=== PATIENT | female | born 1940 | race African-American/Black ===

== ENCOUNTER 2017-07-22 16:14 | Inpatient (IN) | payer MEDICARE, MEDICAID ==
[2017-07-22 17:25] LABS: #Eosinphils 0.4 thou/uL (0.0-0.7); #Lymphocytes 1.3 thou/uL (1.20-3.40); #Monocytes 1.2 thou/uL (0.11-0.59); %Basophils 0.3 % (0.0-1.0); %Eosinophils 3.4 % (0.0-10.0); %Monocytes 10.7 % (0.0-10.0); Hematocrit 33.4 % (36.0-47.0); Mean Platelet Volume 6.1 fL (7.4-10.4); Red Blood Cell (RBC) Count 3.47 mill/uL (4.20-5.40); White Blood Cell (WBC) Count 10.9 thou/uL (4.8-10.8)
[2017-07-22 17:32] LABS: Lactic Acid - Sepsis 2.2 mmol/L (0.5-2.2)
[2017-07-22 17:43] LABS: Troponin I 0.019 ng/mL (< 0.028)
--- NOTE | 2017-07-22 17:57 | RAD ---
LEFT FOOT 3 VIEWS: Date: 07/22/17 HISTORY: Wound on left foot. COMPARISON: None. FINDINGS: There is abnormal erosion of the proximal phalanx head and distal phalanx base of small toe with soft tissue edema. The Lisfranc interval is maintained. Moderate degenerative disease of the midfoot. There is osteopenia of the anterior process of the calcaneus. Enthesopathic changes of the calcaneus are present. Small phlebolith in anterior soft tissues present. IMPRESSION: 1. Findings concerning for osteomyelitis of the great toe proximal phalanx head and distal phalanx b ase. Clinical correlation advised. MRI may be beneficial if clinically indicated. 2. Erosion on medial margin of the proximal phalanx of the great toe can be seen with gout arthritis . POS: [facility]
[2017-07-22 18:43] LABS: Chloride 101 mmol/L (98-107)
[2017-07-22 18:45] LABS: Globulin 5.2 g/dL (2.4-3.5); Protein, Total 8.5 g/dL (6.0-8.3)
[2017-07-22 18:46] LABS: Anion Gap 16 mmol/L (10-20); Carbon Dioxide 15 mmol/L (23-31)
[2017-07-22 18:47] LABS: Bilirubin, Total 0.4 mg/dL (0.2-1.2)
[2017-07-22 18:48] LABS: Alkaline Phosphatase 96 U/L (40-150); Calc. Creatinine Clearance 0 mL/min (70-130); Estimated GFR-MDRD 13
[2017-07-22 18:49] LABS: BUN (Urea Nitrogen) 67 mg/dL (9.8-20.1)
[2017-07-22 18:50] LABS: AST (SGOT) 22 U/L (5-34)
[2017-07-22 18:51] LABS: ALT (SGPT) 17 U/L (8-55); CK (CPK) 44 U/L (29-168)
[2017-07-22] MEDS ORDERED: Piperacillin/Tazobactam 3.375 GM in Sodium Chloride 0.9% 100 ML IVPB SCH (19:15)
[2017-07-22] MEDS ORDERED: Calcium Chloride 1 GM/10 ML Abboject SYRINGE IVP SCH (19:15)
[2017-07-22] MEDS ORDERED: Dextrose 50% Abboject 50 ML SYRINGE ONE (19:21)
[2017-07-22] MEDS ORDERED: Insulin Regular 300 UNITS/3 ML VIAL ONE (19:21)
--- NOTE | 2017-07-22 19:39 | HP ---
HISTORY OF PRESENT ILLNESS: Mrs. Vincent is a 76-year-old black woman. She came into this facility earlier today because of the nonhealing wound in her left toes and it started by an ulceration of the left toe about more than 1 month ago. She has been seeing a mechanic marine engine as an outpatient. She was t reated with antibiotics to which she has not responded. She came to this facility for management. She denies any history of trauma. She denies any history of fever. PAST MEDICAL HISTORY: Remarkable for hypertension. She denies diabetes, heart disease, lung disease , liver disease. PAST SURGICAL HISTORY: Remarkable for hernia repair. ALLERGIES: She does not have any known allergies. SOCIAL HISTORY: She is an active smoker, however, could not quantify her smoking habit. She drinks socially. FAMILY HISTORY: Reviewed and is noncontributory. HOME MEDICATIONS: Not available at this time for identification. REVIEW OF SYSTEMS: Constitutional: She denies any fever, admits to weakness. HEENT: No headache, no ocular pain, no sore throat, no rhinorrhea, no earache, no epistaxis. Neck: No neck pain, no nec k stiffness. Cardiovascular: No shortness of breath. No chest pain. Pulmonary: No coughing. Gas trointestinal: No nausea, no vomiting, no diarrhea, no abdominal pain. Genitourinary: No dysuria, no hematuria. Endocrinology: No heat or cold intolerance. No polyuria, polydipsia, polyphagia. Sk in: She has this ulcer in the left big toe and also gangrenous wet gangrene of the second and third toe. There is no rash. No itching. Hematology: No abnormal bleeding, no ecchymosis. Lymphatic: No palpable lymphadenopathy, no painfu l lymphadenopathy. Allergy: No hay fever. Musculoskeletal: No arthritis. Psychiatric: No anxie ty, no depression. Neurologic: No seizure. PHYSICAL EXAMINATION: GENERAL: At the current time, she is alert, responsive, cooperative, in no acute distress, sick look ing. VITAL SIGNS: Temperature of 97.6, pulse rate 53, respiratory rate 18, blood pressure 103/46. HEENT: Her head is normocephalic and atraumatic. Both her pupils are equally reactive. Ears and no se are normal. Oral mucosa is moist. She has a very poor denture. NECK: Supple. There is no distention of the jugular vein. No lymphadenopathy felt. Thyroid gland is not palpable. There is no carotid bruit. CHEST: Symmetrical with regular S1, S2. LUNGS: Clear. ABDOMEN: Soft. Bowel sound heard. We could not appreciate any organomegaly. EXTREMITIES: Limbs showed no edema. She has an ulcer in the left big toe. In the second and third toes, she has some wet gangrene. Distal pulses are not felt bilaterally. NEUROLOGICAL: She moves all extremities. LABORATORY DATA: CBC showed WBCs of 10.9, hemoglobin of 11.2, hematocrit of 32.4, MCV of 96.2, plate let 236. Lactic acid was noticed to be 2.2. Troponin 0.019. Chemistry and electrolytes are not yet available. CT angiogram of the abdomen and lower extremities is in progress. ASSESSMENT AND PLAN: This is a 76-year-old black woman with history of hypertension, heavy smoker, w ho came in with gangrenous left toes, failed outpatient antibiotics therapy. The patient's vascular surgeon, Dr. Cobian, was consulted. CT angiogram is in progress. The patient is started on antibioti cs. She will be admitted to the surgical floor. Further evaluation and management will depend on th e course of the hospitalization and her response to therapy.
[2017-07-22] MEDS ORDERED: Sodium Chloride 0.9% 1,000 ML IV SCH (20:17)
[2017-07-22] MEDS ORDERED: Morphine 4 MG/ML VIAL SLOW IVP PRN (20:17)
[2017-07-22] MEDS ORDERED: Ondansetron HCl/PF 4 MG/2 ML Vial IVP PRN (20:17)
[2017-07-22] MEDS ORDERED: Milk Of Magnesia 30 ML UDCUP PO PRN (20:17)
[2017-07-22] MEDS ORDERED: Vancomycin HCl 1 GM in Premix Bag 1 BAG IVPB SCH (21:00)
[2017-07-22] MEDS ORDERED: Nicotine 21 MG PATCH TD SCH (21:00)
[2017-07-22] MEDS ORDERED: Piperacillin/Tazobactam 2.25 GM in Sodium Chloride 0.9% 100 ML IVPB SCH (23:59)
[2017-07-23 00:23] LABS: Anion Gap 14 mmol/L (10-20); BUN (Urea Nitrogen) 68 mg/dL (9.8-20.1); Calc. Creatinine Clearance 13 mL/min (70-130); Calcium 9.3 mg/dL (7.8-10.44); Carbon Dioxide 15 mmol/L (23-31); Chloride 104 mmol/L (98-107); Estimated GFR-MDRD 13
[2017-07-23] MEDS: Sodium Bicarbonate 150 MEQ in Dextrose 5% in Water 850 ML IV SCH ×6 (01:39→16:01)
[2017-07-23] MEDS: Acetaminophen 325 MG TAB PO PRN ×2 (01:43→20:52)
[2017-07-23] MEDS ORDERED: Piperacillin/Tazobactam 2.25 GM in Sodium Chloride 0.9% 100 ML IVPB SCH (03:00)
[2017-07-23 05:50] LABS: Anion Gap 12 mmol/L (10-20); BUN (Urea Nitrogen) 66 mg/dL (9.8-20.1); Calc. Creatinine Clearance 14 mL/min (70-130); Calcium 8.7 mg/dL (7.8-10.44); Carbon Dioxide 18 mmol/L (23-31); Chloride 103 mmol/L (98-107); Estimated GFR-MDRD 14
[2017-07-23 06:39] LABS: Bilirubin Large (Negative); Blood, Urine Negative (Negative); Glucose, Urine (Dipstick) Negative (Negative); Ketone, Urine Negative (Negative); Nitrite Negative (Negative); Protein, Urine (Dipstick) Negative (Neg-Trace)
[2017-07-23 06:42] LABS: Bacteria/HPF Rare-Few HPF (None Seen); WBC/HPF 21-50 HPF (0-3)
--- NOTE | 2017-07-23 06:51 | CON ---
DATE OF CONSULTATION: 07/23/2017 HISTORY OF PRESENT ILLNESS: Ms. Yasmin Vincent is a 76-year-old female who presented to the ER yesterd ay evening with foot wound for the past month. She had been treated with antibiotics, but perhaps po diatrist and perhaps her local physician, although she is not sure of the names. She is a rather poo r historian and much of this information was gleaned from medical records as the daughter is not curr ently available. She denies any pain in the foot to me this morning. She has had no apparent fever. PAST MEDICAL HISTORY: Includes hypertension. The patient denies any other medical problems. PAST SURGICAL HISTORY: Perhaps a hernia repair and perhaps an abscess drainage. The patient has cat aracts, but evidently is not sure if she has had this repaired. SOCIAL HISTORY: The patient say she puffs on cigarettes, but does not smoke regularly. REVIEW OF SYSTEMS: Unable to do a review of systems, patient is asking when she can go home. PHYSICAL EXAMINATION: GENERAL: Elderly lady who is afebrile. VITAL SIGNS: Blood pressure recorded is 130/60, heart rate is about 60. NECK: Radiated bruits. CARDIAC: Regular rhythm, harsh systolic murmur, both at the right upper and left lower sternal borde rs. LUNGS: Clear to auscultation anteriorly. ABDOMEN: Soft, nontender, no masses. EXTREMITIES: She has palpable femoral pulses bilaterally with no bruits. I did not detect any other distal pulses except perhaps a right popliteal, but if it is present, it is weak. She has no palpab le pedal pulses. She has a monophasic Doppler signal in the right posterior tibial and no Doppler si gnals in the left PT, DP or perineal. SKIN: Shiny on both feet with gangrenous odor. There is a dry gangrene over the plantar aspect of t he first metatarsal head and a dressing on the left great toe that is dry. ASSESSMENT: Severe peripheral arterial disease. Unfortunately, her creatinine is 4 with a previous creatinine of about 1.1 in November of this year. At this present level of creatinine, any angiographi c evaluation or intervention is not possible. Likewise wound healing will not be possible with this degree of circulatory impairment and a leg amputation may be needed. 2. Renal failure, acute on chronic. Dr. Villa involved. 3. Hypertension, unknown medicines, although documented on amiloride, amlodipine, Cozaar, HCTZ, meto prolol. She was also on Bactrim and Lodine. 4. Harsh systolic murmur, check echo. Presently, the patient is being evaluated from a renal standp oint and it is possible that stopping her home medications, which could be detriment to her renal fun ction may allow for some improvement to allow contrast studies. Based on physical exam, expect that the patient still may have nonreconstructable peripheral vascular disease.
[2017-07-23 07:19] LABS: RBC/HPF 0-3 HPF (0-3)
[2017-07-23 07:21] LABS: Trichomonas/HPF 1+ HPF (None Seen); Yeast-All Forms None Seen HPF (None Seen)
[2017-07-23 07:22] LABS: Hyaline Casts/LPF NONE SEEN LPF (0-3 Hyaline)
[2017-07-23] MEDS ORDERED: Famotidine/PF 20 mg/2ml Vial SLOW IVP SCH (09:00)
[2017-07-23] MEDS ORDERED: Enoxaparin Sodium 30 MG/0.3 ML SYRINGE SC SCH (09:00)
[2017-07-23] MEDS ORDERED: Senokot S 8.6-50 MG TAB PO SCH (09:30)
[2017-07-23] MEDS ORDERED: Amlodipine 10 MG TAB PO SCH (09:30)
--- NOTE | 2017-07-23 09:31 | PDOC.PN ---
- Subjective Encounter Start Date: 07/23/17 Encounter Start Time: 09:29 Patient seen and examined. No new complaints. No overnight events. Undergoing Echo. No CP. - Objective Resuscitation Status: Resuscitation Status FULL:Full Resuscitation MAR Reviewed: Yes Vital Signs & Weight: Vital Signs (12 hours) Temp Pulse Resp BP Pulse Ox 07/23/17 07:00 98.0 F 60 18 170/88 H 100 07/23/17 04:00 97.2 F L 56 L 18 131/62 100 07/23/17 03:51 100 07/23/17 00:00 98.5 F 55 L 20 139/60 100 Weight Weight 149 lb 4.8 oz I&O: 07/22/17 07/23/17 07/24/17 06:59 06:59 06:59 Intake Total 1503 Output Total 200 Balance 1303 Result Diagrams: 07/22/17 17:09 07/23/17 04:24 EKG Reviewed by me: Yes (Tele SR) Phys Exam - Physical Examination Constitutional: NAD Respiratory: no wheezing, no rales, no rhonchi Symmetrical Cardiovascular: RRR, no rub no heaves/pulsation Gastrointestinal: soft, non-tender, no distention, positive bowel sounds Musculoskeletal: no edema LLE gangrene Neurological: non-focal, normal sensation, moves all 4 limbs Psychiatric: normal affect, A&O x 3 Dx/Plan - Plan cont current plan of care, continue antibiotics, PT/OT, oncology social work, DVT proph w/heparin IMPRESSION: 1. Gangrene of toes of left foot with ?Osteomyelitis 2. Severe PVD 3. Severe Hyperkalemia - drug induced 4. CELESTINA with Metabolic acidosis 5. CKD 2 PLAN: * Started on bicarb drip * BMP Q6h x 2 * AM labs * Nephro/CV following * Resume Toprol and Amlodipine * Cont to monitor Review of Systems - Review of Systems Respiratory: negative: Cough, Dry, Shortness of Breath, Hemoptysis, SOB with Excertion, Pleuritic Pain, Sputum, Wheezing Cardiovascular: negative: Chest Pain, Palpitations, Orthopnea, Paroxysmal Noc. Dyspnea, Edema, Light Headedness, Other Gastrointestinal: negative: Nausea, Vomiting, Abdominal Pain, Diarrhea, Constipation, Melena, Hematochezia, Other - Medications/Allergies Allergies/Adverse Reactions: Allergies Allergy/AdvReac Type Severity Reaction Status Date / Time No Known Allergies Allergy Verified 07/22/17 23:44 Medications: Current Medications Acetaminophen (Tylenol) 650 mg PO Q4H PRN PRN Reason: Headache/Fever or Pain Last Admin: 07/23/17 01:43 Dose: 650 mg Amlodipine Besylate (Norvasc) 10 mg PO DAILY [facility] Amlodipine Besylate (Norvasc) 10 mg PO [facility] Bisacodyl (Dulcolax) 10 mg PO DAILYPRN PRN PRN Reason: Constipation Famotidine (Pepcid) 20 mg PO BID [facility] Heparin Sodium (Porcine) (Heparin) 5,000 units SC BID [facility] Vancomycin HCl 750 mg/ Sodium (Chloride) 250 mls @ 250 mls/hr IVPB Q2D@1800 [facility] Sodium Bicarbonate 150 meq/ (Dextrose/Water) 1,000 mls @ 100 mls/hr IV .Q10H [facility] Last Admin: 07/23/17 01:39 Dose: 1,000 mls Piperacillin Sod/Tazobactam (Sod 2.25 gm/ Sodium Chloride) 100 mls @ 200 mls/ hr IVPB Q12HR [facility] Metoprolol Succinate (Toprol Xl) 50 mg PO DAILY [facility] Metoprolol Succinate (Toprol Xl) 50 mg PO [facility] Miscellaneous Medication (Pharmacy To Dose) 1 each IVPB ASDIR [facility] Ondansetron HCl (Zofran) 4 mg IVP Q6H PRN PRN Reason: Nausea/Vomiting Senna/Docusate Sodium (Senokot S) 1 tab PO BID [facility] Senna/Docusate Sodium (Senokot S) 1 tab PO [facility] Sodium Chloride (Flush - Normal Saline) 10 ml IVF Q12HR [facility] Sodium Chloride (Flush - Normal Saline) 10 ml IVF PRN PRN PRN Reason: Saline Flush
[2017-07-23] MEDS: Heparin 5,000 UNITS/ML VIAL SC SCH ×2 (09:34→20:13)
[2017-07-23] MEDS: Piperacillin/Tazobactam 2.25 GM in Sodium Chloride 0.9% 100 ML IVPB SCH ×2 (09:42→20:13)
--- NOTE | 2017-07-23 10:00 | CON ---
DATE OF CONSULTATION: 07/23/2017 Ms. Vincent is a 76-year-old black female who came in with left toe infection - nonhealing wound. Du ring the initial evaluation, she was found to be in acute kidney injury and hyperkalemic. She was st arted on volume repletion and was given calcium gluconate, D50 plus insulin as well as Kayexalate. P otassium has been improving in the last 12 hours. We are consulted for further management of this ac saxman kidney injury and hyperkalemia. REVIEW OF SYSTEMS: No chest pain, no shortness of breath. Positive for left toe wound. No diarrhea , constipation, no gross hematuria. No dysuria, no urinary frequency. No headache, no diplopia, no sore throat, no hematochezia, no diarrhea, no fever or chills, no headache, no sore throat, no abdomi nal pain, occasional joint pains, no new skin rashes. HOME MEDICATIONS: Bactrim-DS 2 tablets p.o. b.i.d., etodolac 100 and p.o. t.i.d. p.r.n., metoprolol succinate 50 mg daily, hydrochlorothiazide 25 mg daily, losartan 100 mg daily, amlodipine 10 mg tab d aily, Amiloride 5 mg daily. Currently, the patient is on Zosyn 2.25 grams IV q.12h, famotidine 20 mg IV daily, vancomycin 750 mg IV q.2 days, morphine sulfate 2 mg IV q.4h., heparin 5000 units subcutaneous b.i.d. PAST MEDICAL HISTORY: 1. Chronic left toe infection. 2. Hypertension. PAST SURGICAL HISTORY: Status post hernia repair. ALLERGIES: None. TRAUMA: None. IMMUNIZATIONS: Not up to date. HOSPITALIZATIONS: Please see past medical history. FAMILY HISTORY: No family history of ESRD. SOCIAL HISTORY: The patient still smokes and has been smoking for the last several years. No alcoho l intake. She has a live-in boyfriend. Lives in [place]. Four children with one . No alcoho l intake, no blood transfusion. Retired caregiver. Education 5th grade. PHYSICAL EXAMINATION: VITAL SIGNS: Blood pressure is 170/88, heart rate 60, respiratory rate 18, temperature 98, pulse ox 100%. GENERAL: Noted to be awake, alert, comfortable, not in distress. SKIN: Adequate turgor. HEENT: Pinkish conjunctivae, anicteric sclerae. NECK: No neck mass or carotid bruits, no JVD. CHEST: No deformities. LUNGS: Clear breath sounds. No wheezing, no crackles. HEART: Normal sinus rhythm. No murmur, no gallops or rubs. ABDOMEN: Globular, soft, nontender, no masses. EXTREMITIES: No edema, no deformities. Please note she has a left toe ulceration. NEUROLOGIC: Moving all extremities. No tremors or asterixis, no ataxia. LABORATORY X-RAY FINDINGS: 07/23/2017 - Sodium 127, potassium 5.9, chloride 103, carbon dioxide 18, BUN 66, creatinine 3.86, glucose 111, calcium 8.7. 07/22/2017 - Sodium 125, potassium 7, chloride 101, carbon dioxide 15, BUN 67, creatinine 3.96. Albu min 3.3. Urinalysis; no protein, WBC 21-50, RBCs 0-3. Urine sodium 48, urine creatinine 108. ASSESSMENT AND PLAN: 1. Acute kidney injury - most likely hemodynamically mediated renal dysfunction secondary to the use of nonsteroidal anti-inflammatory drugs, diuretics and ARB. We will hold off these medications. I a gree with volume repletion. Due to the metabolic acidosis, I changed the IV fluid to isotonic bicarb marla. There is no indication for any dialytic intervention with this patient. I anticipate improve ment in the renal function with this conservative management. 2. Hyperkalemia, much improved. Continue current management on isotonic bicarbonate. Continue to h old off losartan and etodolac. 3. Left nonhealing toe wound. Surgery has been consulted. Dr. Cobian has evaluated this patient. T he patient most likely has severe peripheral vascular disease. Holding off any angiographic procedur e until we can improve the renal function. Overall, I agree with current management.
[2017-07-23 12:33] LABS: Anion Gap 11 mmol/L (10-20); BUN (Urea Nitrogen) 54 mg/dL (9.8-20.1); Calc. Creatinine Clearance 18 mL/min (70-130); Calcium 8.5 mg/dL (7.8-10.44); Carbon Dioxide 23 mmol/L (23-31); Chloride 103 mmol/L (98-107); Estimated GFR-MDRD 19
--- NOTE | 2017-07-23 14:33 | RAD ---
ABDOMEN ONE VIEW: History: 76-year-old female with nausea and vomiting. FINDINGS: Scattered gas and fecal material throughout the colon. There is some gas in nondilated small bowel bu t no evidence to suggest significant bowel obstruction or free intraperitoneal air or overt calculus. IMPRESSION: Considerable gas and fecal material throughout the colon without overt bowel obstruction. Gas in nond ilated small bowel, nonspecific. POS: [facility]
[2017-07-23] MEDS ORDERED: cloNIDine 0.1 MG TAB PO PRN (15:33)
[2017-07-23] MEDS ORDERED: hydrALAZINE 20 MG/ML VIAL SLOW IVP PRN (15:33)
[2017-07-23] MEDS ORDERED: cloNIDine 0.1 MG TAB PO SCH (15:45)
[2017-07-23] MEDS: Bisacodyl 5 MG TAB PO PRN (18:02)
[2017-07-23 18:52] LABS: Anion Gap 11 mmol/L (10-20); BUN (Urea Nitrogen) 49 mg/dL (9.8-20.1); Calc. Creatinine Clearance 22 mL/min (70-130); Calcium 8.4 mg/dL (7.8-10.44); Carbon Dioxide 26 mmol/L (23-31); Chloride 100 mmol/L (98-107); Estimated GFR-MDRD 24
[2017-07-23] MEDS: cloNIDine 0.1 MG TAB PO SCH (20:12)
[2017-07-23] MEDS: Famotidine 20 MG TAB PO SCH (20:12)
[2017-07-23] MEDS: Senokot S 8.6-50 MG TAB PO SCH (20:13)
[2017-07-24 05:13] LABS: Anion Gap 11 mmol/L (10-20); BUN (Urea Nitrogen) 46 mg/dL (9.8-20.1); Calc. Creatinine Clearance 24 mL/min (70-130); Calcium 8.4 mg/dL (7.8-10.44); Carbon Dioxide 28 mmol/L (23-31); Chloride 99 mmol/L (98-107); Estimated GFR-MDRD 27
[2017-07-24 05:46] LABS: Hematocrit 23.9 % (36.0-47.0); Mean Platelet Volume 5.6 fL (7.4-10.4); Red Blood Cell (RBC) Count 2.48 mill/uL (4.20-5.40); White Blood Cell (WBC) Count 6.8 thou/uL (4.8-10.8)
[2017-07-24 05:47] LABS: Band 3 % (5-11); Metamyelocyte 1 % (0-0); Neutrophil 74 % (42-75)
[2017-07-24] MEDS: Sodium Bicarbonate 150 MEQ in Dextrose 5% in Water 850 ML IV SCH ×4 (05:57→21:28)
[2017-07-24] MEDS: Heparin 5,000 UNITS/ML VIAL SC SCH ×2 (09:55→21:34)
[2017-07-24] MEDS: cloNIDine 0.1 MG TAB PO SCH ×3 (09:55→21:33)
[2017-07-24] MEDS: Piperacillin/Tazobactam 2.25 GM in Sodium Chloride 0.9% 100 ML IVPB SCH ×2 (09:56→21:28)
[2017-07-24] MEDS: Famotidine 20 MG TAB PO SCH ×2 (09:56→21:33)
[2017-07-24] MEDS: Amlodipine 10 MG TAB PO SCH (09:56)
[2017-07-24] MEDS: Senokot S 8.6-50 MG TAB PO SCH ×2 (09:56→21:34)
--- NOTE | 2017-07-24 11:26 | PRG ---
DATE OF SERVICE: 07/24/2017 SUBJECTIVE: Ms. Vincent is a 76-year-old old female who was seen for an acute kidney injury and hype rkalemia. This was all related to her medications from etodolac, hydrochlorothiazide, losartan, and Bactrim. She is now on Zosyn. Renal function has been slowly improving with empiric volume repletio n and discontinuation of the nephrotoxic medications. PHYSICAL EXAMINATION: VITAL SIGNS: Blood pressure 147/66, heart rate 67, respiratory rate 18, temperature 99.9, pulse ox 9 5%. GENERAL: Awake, alert, supine, comfortable, not in distress. SKIN: Adequate turgor. HEENT: Slightly pale conjunctivae, anicteric sclerae. NECK: No neck mass, no carotid bruits, no JVD. CHEST: No deformities. LUNGS: Clear breath sounds. No wheezing, no crackles. HEART: Normal sinus rhythm. No murmur, no gallops or rubs. ABDOMEN: Globular, soft, nontender. No masses. EXTREMITIES: No edema. Left extremity, she has a left toe dressing. MEDICATIONS: 07/24/2017 - Reviewed. LABORATORY: 07/24/2017 - Reviewed. Hemoglobin was 7.9. BUN 46, creatinine 2.16. ASSESSMENT AND PLAN: 1. Acute kidney injury, much improved renal function with IV hydration and adjustment of the medicat ions. No indication for any dialytic intervention. Continue current management. 2. Anemia. Continue to monitor. 3. Left foot toe infection on IV antibiotics. Surgery is following. Overall, I agree with current management.
--- NOTE | 2017-07-24 12:54 | PDOC.PN ---
- Subjective Encounter Start Date: 07/24/17 Encounter Start Time: 11:30 Patient seen and examined. No new complaints. No overnight events. Nausea better. No CP/SOB. No melena/hematochezia. - Objective Resuscitation Status: Resuscitation Status FULL:Full Resuscitation MAR Reviewed: Yes Vital Signs & Weight: Vital Signs (12 hours) Temp Pulse Resp BP BP Pulse Ox 07/24/17 12:00 99.4 F 61 16 134/61 95 07/24/17 09:56 67 07/24/17 09:55 147/66 H 07/24/17 08:00 99.9 F H 67 18 147/66 H 95 07/24/17 04:00 98.2 F 56 L 18 150/66 H 94 L Weight Admit Weight 149 lb Weight 146 lb 14.4 oz I&O: 07/23/17 07/24/17 07/25/17 06:59 06:59 06:59 Intake Total 1503 4190 Output Total 200 2050 Balance 1303 2140 Result Diagrams: 07/24/17 17:06 07/24/17 04:13 Radiology Reviewed by me: Yes (KUB - no bowel obstruction) EKG Reviewed by me: Yes (Tele SR) Phys Exam - Physical Examination Constitutional: NAD Respiratory: no wheezing, no rales, no rhonchi Symmetrical Cardiovascular: RRR, no rub 2/6 systolic murmur A area, no gallop Gastrointestinal: soft, non-tender, no distention, positive bowel sounds Musculoskeletal: no edema left foot ulcer/gangrene Neurological: non-focal, normal sensation, moves all 4 limbs Psychiatric: normal affect, A&O x 3 Dx/Plan - Plan cont current plan of care, plan discussed w/ family, continue antibiotics, PT/OT , DVT proph w/heparin IMPRESSION: 1. Gangrene of toes of left foot with ?Osteomyelitis - on Vanc/Zosyn 2. Severe PVD - CV following 3. Severe Hyperkalemia - drug induced - improving 4. CELESTINA with Metabolic acidosis - on bicarb drip 5. CKD 2 6. HTN - not at goal 7. Anemia - ?etio PLAN: * AM labs * Nephro/CV following * Clonidine added due to uncontrolled BP * Resume Toprol and Amlodipine * Cont to monitor * Encourage to sit on chair/ambulate * Advance diet * Check iron profile, Vit B12/folic acid and reticulocyte count in AM Review of Systems - Review of Systems Cardiovascular: negative: Chest Pain, Palpitations, Orthopnea, Paroxysmal Noc. Dyspnea, Edema, Light Headedness Gastrointestinal: negative: Nausea, Vomiting, Abdominal Pain, Diarrhea, Constipation, Melena, Hematochezia, Other - Medications/Allergies Allergies/Adverse Reactions: Allergies Allergy/AdvReac Type Severity Reaction Status Date / Time No Known Allergies Allergy Verified 07/22/17 23:44 Medications: Current Medications Acetaminophen (Tylenol) 650 mg PO Q4H PRN PRN Reason: Headache/Fever or Pain Last Admin: 07/23/17 20:52 Dose: 650 mg Amlodipine Besylate (Norvasc) 10 mg PO DAILY [facility] Last Admin: 07/24/17 09:56 Dose: 10 mg Bisacodyl (Dulcolax) 10 mg PO DAILYPRN PRN PRN Reason: Constipation Last Admin: 07/23/17 18:02 Dose: 10 mg Clonidine (Catapres) 0.1 mg PO Q4H PRN PRN Reason: Systolic BP > 180 Clonidine (Catapres) 0.1 mg PO TID [facility] Last Admin: 07/24/17 09:55 Dose: 0.1 mg Famotidine (Pepcid) 20 mg PO BID [facility] Last Admin: 07/24/17 09:56 Dose: 20 mg Heparin Sodium (Porcine) (Heparin) 5,000 units SC BID [facility] Last Admin: 07/24/17 09:55 Dose: 5,000 units Hydralazine HCl (Apresoline) 10 mg SLOW IVP Q4H PRN PRN Reason: SBP Greater Than 180 Vancomycin HCl 750 mg/ Sodium (Chloride) 250 mls @ 250 mls/hr IVPB Q2D@1800 [facility] Piperacillin Sod/Tazobactam (Sod 2.25 gm/ Sodium Chloride) 100 mls @ 200 mls/ hr IVPB Q12HR [facility] Last Admin: 07/24/17 09:56 Dose: 100 mls Sodium Bicarbonate 150 meq/ (Dextrose/Water) 1,000 mls @ 70 mls/hr IV .[id number] [facility] Last Admin: 07/24/17 05:57 Dose: 1,000 mls Metoprolol Succinate (Toprol Xl) 50 mg PO DAILY [facility] Last Admin: 07/24/17 09:56 Dose: 50 mg Miscellaneous Medication (Pharmacy To Dose) 1 each IVPB ASDIR [facility] Ondansetron HCl (Zofran) 4 mg IVP Q6H PRN PRN Reason: Nausea/Vomiting Senna/Docusate Sodium (Senokot S) 1 tab PO BID [facility] Last Admin: 07/24/17 09:56 Dose: 1 tab Sodium Chloride (Flush - Normal Saline) 10 ml IVF Q12HR [facility] Last Admin: 07/24/17 09:57 Dose: Not Given Sodium Chloride (Flush - Normal Saline) 10 ml IVF PRN PRN PRN Reason: Saline Flush
[2017-07-24] MEDS: Acetaminophen 325 MG TAB PO PRN (16:26)
[2017-07-24 17:25] LABS: Hematocrit 22.7 % (36.0-47.0)
[2017-07-24] MEDS ORDERED: Vancomycin HCl 750 MG in Sodium Chloride 0.9% 250 ML 250 ML IVPB SCH (18:00)
[2017-07-25] MEDS: Sodium Bicarbonate 150 MEQ in Dextrose 5% in Water 850 ML IV SCH ×6 (02:27→21:12)
[2017-07-25 05:02] LABS: IRF 0.336 Ratio (0.163-0.362); Reticulocyte Count 1.8 % (0.5-1.5)
[2017-07-25 05:04] LABS: #Eosinphils 0.1 thou/uL (0.0-0.7); #Lymphocytes 1.2 thou/uL (1.20-3.40); #Neutrophils 5.3 thou/uL (1.40-6.50); %Basophils 0.6 % (0.0-1.0); %Eosinophils 1.9 % (0.0-10.0); %Lymphocytes 15.4 % (21.0-51.0); %Monocytes 13.3 % (0.0-10.0); Hematocrit 24.1 % (36.0-47.0); Mean Platelet Volume 5.4 fL (7.4-10.4); Red Blood Cell (RBC) Count 2.48 mill/uL (4.20-5.40); White Blood Cell (WBC) Count 7.7 thou/uL (4.8-10.8)
[2017-07-25 05:29] LABS: Iron 39 ug/dL (50-170)
[2017-07-25 05:30] LABS: Anion Gap 7 mmol/L (10-20); BUN (Urea Nitrogen) 30 mg/dL (9.8-20.1); BUN/Creatinine Ratio 19.61; Calc. Creatinine Clearance 34 mL/min (70-130); Calcium 8.9 mg/dL (7.8-10.44); Carbon Dioxide 31 mmol/L (23-31); Chloride 101 mmol/L (98-107); Estimated GFR-MDRD 40; Iron 39 ug/dL (50-170); Phosphorus 2.5 mg/dL (2.3-4.7)
--- NOTE | 2017-07-25 08:59 | PRG ---
DATE OF SERVICE: 07/25/2017 SUBJECTIVE: Ms. Vincent is a 76-year-old black female seen for her acute kidney injury/ hyperkalemia. Over the last several days she has been doing better. She has been treated with IV hydration. In addition, her medications were all adjusted. She is now eating better. The nausea and vomiting is much improved. The patient denies any complaints of chest pain or shortness of breath. PHYSICAL EXAMINATION: VITAL SIGNS: Blood pressure 184/80, heart rate 53, respiratory rate 16, temperature 98.2, pulse ox 92%. GENERAL: Awake, supine, comfortable, not in distress. SKIN: Adequate turgor. HEENT: Slightly pale conjunctivae, anicteric sclerae. NECK: No neck mass, no carotid bruits, no JVD. CHEST: No deformities. LUNGS: Clear breath sounds, no wheezing, no crackles. HEART: Normal sinus rhythm. Grade 2/6 systolic murmur, no gallops or rubs. ABDOMEN: Globular, soft, nontender, no masses. EXTREMITIES: No edema, no deformities. MEDICATIONS: 07/25/2017 - Reviewed. LABORATORY: 07/25/2017 - White count 7.7, hemoglobin is 7.8. Sodium 135, potassium 4.4, chloride 101, carbon dioxide 31, BUN is 30, creatinine 1.53. Lactic acid 132, albumin 2.8. ASSESSMENT AND PLAN: 1. Acute kidney injury - consider hemodynamically mediated renal dysfunction. Much improved with IV hydration and adjustment of her medications. Please note she is off of etodolac and ARB. She is not on a diuretic at the present time. Please note that back on 07/22/2017 she had a cardiac echo done and it showed an EF of 60-65% with findings of diastolic dysfunction. 2. Diarrhea, resolved. Overall, I agree with current management. There is no indication for any dialytic intervention with this patient. ISABELLAD
[2017-07-25] MEDS: Piperacillin/Tazobactam 2.25 GM in Sodium Chloride 0.9% 100 ML IVPB SCH ×2 (10:49→21:15)
[2017-07-25] MEDS: Famotidine 20 MG TAB PO SCH (10:55)
[2017-07-25] MEDS: Heparin 5,000 UNITS/ML VIAL SC SCH ×2 (10:55→21:13)
[2017-07-25] MEDS: Senokot S 8.6-50 MG TAB PO SCH ×2 (10:55→21:13)
[2017-07-25] MEDS: cloNIDine 0.1 MG TAB PO SCH ×3 (10:55→21:13)
[2017-07-25] MEDS: Amlodipine 10 MG TAB PO SCH (10:56)
[2017-07-25] MEDS ORDERED: Aspirin 81 mg Enteric Coated Tablet PO SCH (13:45)
--- NOTE | 2017-07-25 13:46 | PDOC.PN ---
- Subjective Encounter Start Date: 07/25/17 Encounter Start Time: 13:45 Patient seen and examined. No new complaints. No overnight events. No melena/ hematochezia. - Objective Resuscitation Status: Resuscitation Status FULL:Full Resuscitation MAR Reviewed: Yes Vital Signs & Weight: Vital Signs (12 hours) Temp Pulse Resp BP BP Pulse Ox 07/25/17 11:20 99.2 F 62 13 163/72 H 94 L 07/25/17 10:56 64 171/73 H 07/25/17 10:55 171/73 H 07/25/17 04:00 98.2 F 53 L 16 184/80 H 92 L Weight Admit Weight 149 lb Weight 149 lb 1.6 oz I&O: 07/24/17 07/25/17 07/26/17 06:59 06:59 06:59 Intake Total 4190 2484 Output Total 0 2450 Balance 2140 34 Result Diagrams: 07/26/17 04:15 07/26/17 04:15 EKG Reviewed by me: Yes (Tele SR) Phys Exam - Physical Examination Constitutional: NAD Respiratory: no wheezing, no rales, no rhonchi Cardiovascular: RRR, no rub Gastrointestinal: soft, non-tender, positive bowel sounds Musculoskeletal: no edema skin lesion - same Neurological: moves all 4 limbs Dx/Plan - Plan cont current plan of care, continue antibiotics, PT/OT, DVT proph w/heparin IMPRESSION: 1. Gangrene of toes of left foot with ?Osteomyelitis - on Vanc/Zosyn 2. Severe PVD - CV following 3. Severe Hyperkalemia - drug induced - improving 4. CELESTINA with Metabolic acidosis - on bicarb drip 5. CKD 2 6. HTN - not at goal 7. Anemia - ?etio 8. Folic acid def PLAN: * Cont Atbx * Consult GI for anemia * AM labs * Cont gentle IV hydration * Clear liqd diet * Cont other meds as below Review of Systems - Review of Systems Respiratory: negative: Cough, Dry, Shortness of Breath, Hemoptysis, SOB with Excertion, Pleuritic Pain, Sputum, Wheezing Cardiovascular: negative: Chest Pain, Palpitations, Orthopnea, Paroxysmal Noc. Dyspnea, Edema, Light Headedness Gastrointestinal: negative: Nausea, Vomiting, Abdominal Pain, Diarrhea, Constipation, Melena, Hematochezia - Medications/Allergies Allergies/Adverse Reactions: Allergies Allergy/AdvReac Type Severity Reaction Status Date / Time No Known Allergies Allergy Verified 07/22/17 23:44 Medications: Current Medications Acetaminophen (Tylenol) 650 mg PO Q4H PRN PRN Reason: Headache/Fever or Pain Last Admin: 07/24/17 16:26 Dose: 650 mg Amlodipine Besylate (Norvasc) 10 mg PO DAILY [facility] Last Admin: 07/25/17 10:56 Dose: 10 mg Aspirin (Ecotrin) 81 mg PO DAILY [facility] Aspirin (Ecotrin) 81 mg PO ONE [facility] Bisacodyl (Dulcolax) 10 mg PO DAILYPRN PRN PRN Reason: Constipation Last Admin: 07/23/17 18:02 Dose: 10 mg Clonidine (Catapres) 0.1 mg PO Q4H PRN PRN Reason: Systolic BP > 180 Clonidine (Catapres) 0.1 mg PO TID [facility] Last Admin: 07/25/17 10:55 Dose: 0.1 mg Heparin Sodium (Porcine) (Heparin) 5,000 units SC BID [facility] Last Admin: 07/25/17 10:55 Dose: 5,000 units Hydralazine HCl (Apresoline) 10 mg SLOW IVP Q4H PRN PRN Reason: SBP Greater Than 180 Vancomycin HCl 750 mg/ Sodium (Chloride) 250 mls @ 250 mls/hr IVPB Q2D@1800 [facility] Last Admin: 07/24/17 17:23 Dose: 250 mls Piperacillin Sod/Tazobactam (Sod 2.25 gm/ Sodium Chloride) 100 mls @ 200 mls/ hr IVPB Q12HR [facility] Last Admin: 07/25/17 10:49 Dose: 100 mls Sodium Bicarbonate 150 meq/ (Dextrose/Water) 1,000 mls @ 70 mls/hr IV .[id number] [facility] Last Admin: 07/25/17 02:27 Dose: 1,000 mls Metoprolol Succinate (Toprol Xl) 50 mg PO DAILY [facility] Last Admin: 07/25/17 10:56 Dose: 50 mg Miscellaneous Medication (Pharmacy To Dose) 1 each IVPB ASDIR [facility] Ondansetron HCl (Zofran) 4 mg IVP Q6H PRN PRN Reason: Nausea/Vomiting Pantoprazole Sodium (Protonix) 40 mg PO BID [facility] Senna/Docusate Sodium (Senokot S) 1 tab PO BID [facility] Last Admin: 07/25/17 10:55 Dose: 1 tab Sodium Chloride (Flush - Normal Saline) 10 ml IVF Q12HR [facility] Last Admin: 07/25/17 11:34 Dose: Not Given Sodium Chloride (Flush - Normal Saline) 10 ml IVF PRN PRN PRN Reason: Saline Flush
[2017-07-25 14:02] LABS: Vancomycin, Random 8.2 ug/mL (See Comment)
--- NOTE | 2017-07-25 14:09 | CON ---
DATE OF CONSULTATION: 07/25/2017 GASTROINTESTINAL INPATIENT CONSULTATION NOTE REQUESTING PHYSICIAN: New [place] M.D. REASON FOR CONSULTATION: Anemia. HISTORY OF PRESENT ILLNESS: Yasmin Vincent is a 76-year-old -Citizen Of [place] woman who was admitted to the hospital 3 days ago with a nonhealing wound on the left foot and found to be in acute kidney inj ury with hyperkalemia. She had recently been treated with Bactrim for this chronic left lower extrem ity wound, but it had not been working. In addition, she was found to have this acute renal failure and renal failure has been improving over the past few days, hospitalized, she has been evaluated by Vascular Surgery and potential angiographic studies and/or amputation or revascularization procedure is planned at some point. Notably, upon admission, her hemoglobin was 11.2, but for some reason, thi s dropped quite significantly to 7.9 by the following day. Over the past 2 days, this has remained s table, currently is 7.8. Through this, there has been no evidence of overt bleeding from anywhere. The patient denies any overt bleeding. There has been no report of hematuria, no melena or hematoche arnulfo, no nausea or vomiting. She denies any abdominal pain. She has never undergone EGD or colonosco py. She denies NSAID use. She is not on any acid suppression. She denies any family history of GI malignancy. Further labs demonstrated mixed iron studies and a low folic acid level of 5.8. REVIEW OF SYSTEMS: Full review of systems including constitutional, head, eyes, ears, nose, throat, GI, , cardiovascular, respiratory, musculoskeletal, and neurologic systems is negative except as no raphael in the HPI. PAST MEDICAL HISTORY: Hypertension, peripheral arterial disease, hernia repair. ALLERGIES: No known drug allergies. OUTPATIENT MEDICATIONS: Bactrim, etodolac, metoprolol, hydrochlorothiazide, losartan, amlodipine, an d amiloride. INPATIENT MEDICATIONS: Amlodipine, clonidine, famotidine, metoprolol, Zosyn IV, vancomycin IV. FAMILY HISTORY: Negative for any GI malignancy that she is aware of. SOCIAL HISTORY: She does smoke. Alcohol use is social. PHYSICAL EXAMINATION: VITAL SIGNS: Temperature 98.2, pulse 64, blood pressure 171/73, 92% oxygen saturation on room air. GENERAL: Frail 76-year-old -Citizen Of [place] woman, lying in bed comfortably in no distress. MENTAL: Alert and oriented. She is able to answer detailed questions about her history and expresse s an understanding of what is going on. SKIN: No jaundice, no rashes were palpable. I did not examine the skin of her left lower extremity. EYES: No scleral icterus. Extraocular movements intact. ENT: Mucous membranes moist, no oral lesions. LYMPH: No submandibular, supraclavicular lymphadenopathy. THYROID: Nontender to palpation. HEART: Regular rate and rhythm. LUNGS: Clear to auscultation bilaterally. ABDOMEN: Bowel sounds present, soft and nontender to palpation throughout. EXTREMITIES: No peripheral edema. LABORATORY STUDIES: Hemoglobin initially 11.2 dropped to 7.9 and now has been stable for the past 2 days. Currently, it is 7.8. WBC 7.7, platelets 378, BUN 30, creatinine 1.53. Folic acid, low at 5. 8, ferritin 645, iron 39, TIBC 175, so iron studies are mixed. ESR is 45. LFTs are normal on admiss ion. ASSESSMENT AND PLAN: 1. Anemia, acute on chronic, with no evidence of any overt bleeding. 2. Folic acid deficiency. 3. Gangrene of the left lower extremity due to severe peripheral arterial disease. There has been n o evidence of overt bleeding, but it is certainly possible she may have an occult gastrointestinal bl eeding lesion contributing to her anemia. I do note the mixed iron studies as well as folic acid def iciency. Folic acid replacement is advised. I do think it would certainly be reasonable to perform EGD and colonoscopy to rule out occult gastrointestinal bleeding lesion. However, after extensive di scussion of this with the patient, she declines any endoscopic investigations at this time. She unde rstands the implications of failure to diagnose or delay of diagnosis in declining endoscopic investi gation, I would honor her decision on this. At this point, gastrointestinal will sign off, but pleas e call back in the future with any questions or concerns.
[2017-07-25] MEDS: Vancomycin HCl 750 MG in Sodium Chloride 0.9% 250 ML 250 ML IVPB SCH (15:45)
[2017-07-25] MEDS ORDERED: GoLYTELY 4,000 ml Bottle PO SCH ×2 (18:00→21:00)
[2017-07-26] MEDS: Sodium Bicarbonate 150 MEQ in Dextrose 5% in Water 850 ML IV SCH ×2 (04:21)
[2017-07-26 05:29] LABS: Hematocrit 24.8 % (36.0-47.0)
[2017-07-26 06:00] LABS: Anion Gap 9 mmol/L (10-20); BUN (Urea Nitrogen) 14 mg/dL (9.8-20.1); BUN/Creatinine Ratio 11.67; Calc. Creatinine Clearance 43 mL/min (70-130); Calcium 9.1 mg/dL (7.8-10.44); Carbon Dioxide 28 mmol/L (23-31); Chloride 104 mmol/L (98-107); Estimated GFR-MDRD 53; Phosphorus 2.4 mg/dL (2.3-4.7)
--- NOTE | 2017-07-26 09:30 | PRG ---
DATE OF SERVICE: 07/26/2017 SERVICE: Renal Medicine. SUBJECTIVE: Ms. Vincent is a 76-year-old black female seen for acute kidney injury. This was secondary to hemodynamically mediated renal dysfunction. Patient was on NSAIDS, ARB and diuretics. This was discontinued. Empiric volume repletion was given to the patient with improvement of the renal function. She voices no new complaints. She has a planned colonoscopy. The patient denies any chest pain or shortness of breath. OBJECTIVE: VITAL SIGNS: Blood pressure 127/58, heart rate 65, respiratory rate 16, temperature 99, pulse ox 95%. GENERAL: Awake, alert, comfortable, not in overt distress. SKIN: Adequate turgor. HEENT: Slightly pale conjunctivae, anicteric sclerae. NECK: No neck mass, no carotid bruits, no JVD. CHEST: No deformities. LUNGS: Clear breath sounds, no wheezing, no crackles. HEART: Normal sinus rhythm. Grade 2/6 systolic murmur, no gallops or rubs. ABDOMEN: Globular, soft, nontender. No masses. EXTREMITIES: No edema, no deformities. MEDICATIONS: Of 07/26/2017 was reviewed. LABORATORY DATA: Of 07/26/2017, sodium 137, potassium 4.4, chloride 104, carbon dioxide 28, BUN 14, creatinine 1.2, glucose 134, calcium 9.1, phosphorus 2.4, GFR is 53 mL per minute. ASSESSMENT AND PLAN: 1. Acute kidney injury - hemodynamically mediated renal dysfunction, much improved with volume repletion and adjustment of her medications. Please continue to hold off any NSAIDs and ARB for the moment. 2. Anemia. GI workup is being done. The patient is for planned colonoscopy. 3. Left great toe infection - on IV antibiotics. Due to the much improved creatinine and renal function, we will be signing off. Please call if needed. ISABELLAD
[2017-07-26] MEDS: cloNIDine 0.1 MG TAB PO SCH ×3 (09:36→20:57)
[2017-07-26] MEDS: Senokot S 8.6-50 MG TAB PO SCH ×2 (09:36→21:01)
[2017-07-26] MEDS: Amlodipine 10 MG TAB PO SCH (09:36)
[2017-07-26] MEDS: Folic Acid 1 MG TAB PO SCH ×2 (09:37→21:00)
[2017-07-26] MEDS: Aspirin 81 mg Enteric Coated Tablet PO SCH (09:37)
[2017-07-26] MEDS: Heparin 5,000 UNITS/ML VIAL SC SCH ×2 (09:37→20:58)
[2017-07-26] MEDS: Piperacillin/Tazobactam 2.25 GM in Sodium Chloride 0.9% 100 ML IVPB SCH ×2 (09:42→20:57)
[2017-07-26] MEDS ORDERED: metroNIDAZOLE 500 MG TAB PO SCH (10:30)
--- NOTE | 2017-07-26 12:44 | CT ---
CT ANGIOGRAM ABDOMEN AND PELVIS WITH IV CONTRAST AND 3D RECONSTRUCTIONS AND CT ANGIOGRAM BILATERAL LOWER EXTREMITIES WITH RUNOFF TO THE FEET WITH IV CONTRAST AND 3D RECONSTRUCTI ONS: Date: 07/26/17 HISTORY: Left foot dry gangrene. COMPARISON: None available. FINDINGS: CT ABDOMEN AND PELVIS: There is bibasilar atelectasis with very tiny right pleural effusion present. Greater degree of linea r densities in the left lung base, which is thought to be related to atelectasis, although scarring i s a possibility as well. The heart is mildly enlarged. There is heterogeneity of the liver, some of which could be related to phase of enhancement, but gabriella elation with liver function tests is recommended. There is a calcification of posterior segment right hepatic lobe which may be related to prior granulomatous disease. There are cortically based areas of scarring in each kidney with subcentimeter too small to character ize hypodense bilateral renal lesions present. The spleen, pancreas, and urinary bladder demonstrate a normal CT appearance. There is symmetric thic kening of each adrenal gland without evidence of an adrenal mass. There is evidence of prior hysterectomy. There are a few scattered colonic diverticula noted. Small bowel is normal in caliber. There is expansion of the L3 vertebral body in AP dimensions with ground-glass density and cortical t hickening involving the posterior elements of the L3 vertebral body. There is eccentric atherosclerotic plaque in the inferior aspect of the proximal left celiac artery, which results in moderate degree of narrowing involving the proximal celiac artery. Diffuse atheroscl erotic calcifications and plaque involves the superior mesenteric artery with moderate degrees of sav rowing involving the most proximal superior mesenteric artery. The origin of the KRISTINA is not well visu alized due to dense vascular calcifications. There are single renal arteries bilaterally. The origins of the renal arteries are mostly obscured, a lthough there is probably at least moderate narrowing involving the origin of the right renal artery, as well as involving the most proximal left renal artery. There is atherosclerotic calcification seen throughout the abdominal aorta, but the abdominal aorta i s normal in caliber without evidence of an aortic dissection. Atherosclerotic calcifications and plaq ue involve the iliac arteries bilaterally as well. However, the bilateral common iliac, as well as ex ternal iliac arteries are patent. There is what appears to be severe focal versus critical stenosis i nvolving the more distal aspect of the right internal iliac artery. There are mild to moderate degree s of narrowing also involving the left internal iliac artery. BILATERAL LOWER EXTREMITY RUNOFF: Right lower extremity: The right common femoral artery is patent. There is atherosclerotic plaque involving the profunda fem oral and superficial femoral arteries. The right profunda femoral artery is patent. There is mild to moderate narrowing involving the most proximal right superficial femoral artery with moderate and sev ere longer segment area of stenosis seen at the level of the adductor canal with the length of this a taqueria of narrowing measuring 3.8 cm and there is at least an area of very severe narrowing in the most distal aspect of the superficial femoral artery near the adductor canal. There is atherosclerotic irr egularity involving the popliteal artery with mild to moderate narrowing seen just above the level of the knee joint with more severe focal stenosis involving the popliteal artery. There is occlusion of the anterior tibial artery at the origin. There is severe/critical stenosis involving the distal asp ect of the tibioperoneal trunk with occlusion of the left posterior tibial artery. Single vessel runo ff to the foot is via the peroneal artery. Dorsalis pedis artery is not seen in the foot. Left lower extremity: The left common femoral artery is patent. There is occlusion of the left superficial femoral artery a t the origin. The left profunda femoral artery is patent. There is reconstitution of the most distal left lower extremity superficial femoral artery with a critical stenosis seen within the left superfi cial femoral artery at the level of the adductor canal. There is also moderate narrowing at the most proximal aspect of the popliteal artery with atherosclerotic irregularity throughout the popliteal ar christin and occlusion of the popliteal artery just below the level of the knee joint. The anterior tibia l and posterior tibial arteries are occluded. Single vessel runoff is via reconstitution of the peron eal artery. IMPRESSION: 1. Bibasilar atelectasis with tiny right pleural effusion. 2. Heterogeneity of the liver, probably related to phase of enhancement, but correlation with liver function tests is recommended. 3. Mild cardiomegaly. 4. Areas of mild scarring involving each kidney with subcentimeter, too small to characterize, hypod ense bilateral renal lesions. 5. Findings likely attributable to Paget's disease involving the L3 vertebral body. 6. Atherosclerotic calcifications and plaque in the abdominal aorta, but the abdominal aorta is norm al in caliber. 7. Atherosclerotic plaque and narrowing involving both the celiac and superior mesenteric artery. 8. Probable at least moderate narrowing involving the origin of the right and proximal left renal ar teries. 9. Atherosclerotic vascular disease involving the lower extremity arterial vessels bilaterally with occlusion of the left superficial femoral artery and multifocal disease and eventual occlusion of the left popliteal artery. There is reconstitution of the left peroneal artery in the proximal calf whic h is single vessel runoff to the left lower extremity. 10. Multifocal areas of mild narrowing involving the right superficial femoral artery with more foca l severe degrees of narrowing involving the distal right superficial femoral artery at the level of t he adductor canal. 11. Occlusion of the right anterior tibial and posterior tibial arteries with single vessel runoff t o the right lower extremity via the peroneal artery. POS: FUNMILAYO
--- NOTE | 2017-07-26 14:29 | PDOC.PN ---
- Subjective Encounter Start Date: 07/26/17 Encounter Start Time: 10:00 Patient seen and examined. No new complaints. No overnight events. Did not drink Golytely. - Objective Resuscitation Status: Resuscitation Status FULL:Full Resuscitation MAR Reviewed: Yes Vital Signs & Weight: Vital Signs (12 hours) Temp Pulse Resp BP BP Pulse Ox 07/26/17 12:00 99.3 F 56 L 16 188/79 H 95 07/26/17 09:36 58 L 192/91 H 07/26/17 04:00 99.0 F 65 16 127/58 L 95 Weight Admit Weight 149 lb Weight 145 lb 1.6 oz I&O: 07/25/17 07/26/17 07/27/17 06:59 06:59 06:59 Intake Total 2484 3160 Output Total 2450 2375 Balance 34 785 Result Diagrams: 07/26/17 04:15 07/26/17 04:15 EKG Reviewed by me: Yes (Tele SR) Phys Exam - Physical Examination Constitutional: NAD Respiratory: no wheezing, no rhonchi Cardiovascular: RRR, no rub Gastrointestinal: soft, non-tender, positive bowel sounds Musculoskeletal: no edema Neurological: non-focal, moves all 4 limbs Psychiatric: A&O x 3 Dx/Plan - Plan cont current plan of care, continue antibiotics, PT/OT, DVT proph w/heparin IMPRESSION: 1. Gangrene of toes of left foot with ?Osteomyelitis - on Vanc/Zosyn 2. Severe PVD - CV following 3. Severe Hyperkalemia - drug induced - improving 4. CELESTINA with Metabolic acidosis - on bicarb drip 5. CKD 2 6. HTN 7. Anemia - ?etio 8. Folic acid def 9. Trichomonas Vag - On Flagyl PLAN: * CT Angio LE ordered * Cont Atbx * GI following for anemia - Patient did not complete Golytely * AM labs * Cont gentle IV hydration - Change IVF to D51/2 NS * Cont Clear liqd diet * Cont other meds as below Review of Systems - Review of Systems Constitutional: negative: Fever, Chills, Sweats, Weakness, Malaise Respiratory: negative: Cough, Dry, Shortness of Breath, Hemoptysis, SOB with Excertion, Pleuritic Pain, Sputum, Wheezing Cardiovascular: negative: Chest Pain, Palpitations, Orthopnea, Paroxysmal Noc. Dyspnea, Edema, Light Headedness Gastrointestinal: negative: Nausea, Vomiting, Abdominal Pain, Diarrhea, Constipation, Melena, Hematochezia - Medications/Allergies Allergies/Adverse Reactions: Allergies Allergy/AdvReac Type Severity Reaction Status Date / Time No Known Allergies Allergy Verified 07/22/17 23:44 Medications: Current Medications Acetaminophen (Tylenol) 650 mg PO Q4H PRN PRN Reason: Headache/Fever or Pain Last Admin: 07/24/17 16:26 Dose: 650 mg Amlodipine Besylate (Norvasc) 10 mg PO DAILY [facility] Last Admin: 07/26/17 09:36 Dose: 10 mg Aspirin (Ecotrin) 81 mg PO DAILY [facility] Last Admin: 07/26/17 09:37 Dose: 81 mg Bisacodyl (Dulcolax) 10 mg PO DAILYPRN PRN PRN Reason: Constipation Last Admin: 07/23/17 18:02 Dose: 10 mg Clonidine (Catapres) 0.1 mg PO Q4H PRN PRN Reason: Systolic BP > 180 Clonidine (Catapres) 0.1 mg PO Q8HR [facility] Folic Acid (Folvite) 1 mg PO BID [facility] Last Admin: 07/26/17 09:37 Dose: 1 mg Heparin Sodium (Porcine) (Heparin) 5,000 units SC BID [facility] Last Admin: 07/26/17 09:37 Dose: Not Given Hydralazine HCl (Apresoline) 10 mg SLOW IVP Q4H PRN PRN Reason: SBP Greater Than 180 Piperacillin Sod/Tazobactam (Sod 2.25 gm/ Sodium Chloride) 100 mls @ 200 mls/ hr IVPB Q12HR [facility] Last Admin: 07/26/17 09:42 Dose: 100 mls Sodium Bicarbonate 150 meq/ (Dextrose/Water) 1,000 mls @ 70 mls/hr IV .[id number] [facility] Last Admin: 07/26/17 04:21 Dose: Not Given Vancomycin HCl 750 mg/ Sodium (Chloride) 250 mls @ 250 mls/hr IVPB Q24HR@1500 [facility] Last Admin: 07/25/17 15:45 Dose: 250 mls Metoprolol Succinate (Toprol Xl) 50 mg PO DAILY [facility] Last Admin: 07/26/17 09:36 Dose: 50 mg Metronidazole (Flagyl) 500 mg PO BID [facility] Miscellaneous Medication (Pharmacy To Dose) 1 each IVPB ASDIR [facility] Ondansetron HCl (Zofran) 4 mg IVP Q6H PRN PRN Reason: Nausea/Vomiting Pantoprazole Sodium (Protonix) 40 mg PO BID [facility] Last Admin: 07/26/17 09:37 Dose: 40 mg Polyethylene Glycol/Electrolytes (Golytely) 4,000 ml PO ONE [facility] Stop: 07/26/17 18:01 Last Admin: 07/25/17 21:19 Dose: 4,000 ml Senna/Docusate Sodium (Senokot S) 1 tab PO BID [facility] Last Admin: 07/26/17 09:36 Dose: 1 tab Sodium Chloride (Flush - Normal Saline) 10 ml IVF Q12HR [facility] Last Admin: 07/26/17 09:38 Dose: Not Given Sodium Chloride (Flush - Normal Saline) 10 ml IVF PRN PRN PRN Reason: Saline Flush
[2017-07-26] MEDS: Dextrose 5 %-0.45 % NaCl 1,000 ML IV SCH (15:36)
[2017-07-26] MEDS: Vancomycin HCl 750 MG in Sodium Chloride 0.9% 250 ML 250 ML IVPB SCH (15:43)
[2017-07-26] MEDS ORDERED: ISOVUE-370 76%-LOCM 1 ML ONE (16:45)
[2017-07-26] MEDS: metroNIDAZOLE 500 MG TAB PO SCH (20:57)
[2017-07-27 05:52] LABS: Anion Gap 11 mmol/L (10-20); BUN (Urea Nitrogen) 7 mg/dL (9.8-20.1); Calc. Creatinine Clearance 50 mL/min (70-130); Calcium 8.9 mg/dL (7.8-10.44); Carbon Dioxide 22 mmol/L (23-31); Chloride 107 mmol/L (98-107); Estimated GFR-MDRD 61
[2017-07-27] MEDS ORDERED: Magnesium Citrate 300 ML BOT PO SCH (08:15)
[2017-07-27] MEDS: Amlodipine 10 MG TAB PO SCH (08:26)
[2017-07-27] MEDS: cloNIDine 0.1 MG TAB PO SCH ×3 (08:26→20:46)
[2017-07-27] MEDS: Piperacillin/Tazobactam 2.25 GM in Sodium Chloride 0.9% 100 ML IVPB SCH ×2 (08:28→20:48)
[2017-07-27] MEDS: Dextrose 5 %-0.45 % NaCl 1,000 ML IV SCH ×2 (09:51→18:59)
--- NOTE | 2017-07-27 10:58 | PRG ---
DATE OF SERVICE: 07/27/2017 SUBJECTIVE: The patient is seen and examined at the bedside. She is getting ready for her scoping t chapis. Apparently, she had all prep, but she still not clean, so she will have magnesium citrate prio r to her scoping. There was not any unexpected events overnight. OBJECTIVE: VITAL SIGNS: Blood pressure is 197/81, pulse is 56, respiratory rate is 20, O2 saturation 95% on lam m air. HEENT: Pupils are responding to light properly. Sclerae nonicteric. Oral mucosa is moist. NECK: Supple. LUNGS: Clear. CARDIOVASCULAR: There is a harsh systolic murmur at the left sternal border and in the left mammary line, mostly audible. S1, S2 is normal. ABDOMEN: Soft, nontender, nondistended. Bowel sounds are present. No organomegaly. EXTREMITIES: Left foot presents with an ulcer, which is located underneath the first phalanx on the left, which is dry, not draining any fluid, size is approximately an inch. NEUROLOGIC: She follows my commands. She moves her all 4 extremities. There is not any motor defic its present. Cranial nerves are intact. LABORATORY DATA: Showed sodium of 135, potassium 4.7, chloride 101, CO2 22, BUN 7, creatinine 1.06, glucose 136, calcium 8.9. Microbiology: Two blood cultures negative in 48 hours. Urine culture neg ative. IMPRESSION: 1. Left great toe area ulcer with possible osteomyelitis. The patient is on vancomycin and Zosyn. She had CT angiogram done yesterday, which showed some significant blockages on both lower extremitie s. We will have a vascular surgeon to assess the situation and see whether she needs to be put throu gh an amputation of this area or she can heal without any vascular intervention. 2. Severe peripheral arterial disease as mentioned above. 3. Acute kidney injury with metabolic acidosis, resolved. 4. Chronic kidney disease. 5. Hypertension. 6. Anemia of unclear etiology. The patient is getting prepped for her scoping this morning. PLAN: Discuss the case with the vascular surgeon. Continue antibiotics. Have a scoping done at [facility] morning or this evening and continue current care.
[2017-07-27] MEDS: Folic Acid 1 MG TAB PO SCH ×2 (11:50→20:46)
[2017-07-27] MEDS: Heparin 5,000 UNITS/ML VIAL SC SCH ×2 (11:50→20:46)
[2017-07-27] MEDS: Aspirin 81 mg Enteric Coated Tablet PO SCH (11:50)
[2017-07-27] MEDS: metroNIDAZOLE 500 MG TAB PO SCH ×2 (11:51→20:45)
[2017-07-27] MEDS: Senokot S 8.6-50 MG TAB PO SCH ×2 (11:51→20:46)
--- NOTE | 2017-07-27 13:29 | OP ---
DATE OF PROCEDURE: 07/27/2017 GI ENDOSCOPY NOTE SURGEON: Gurmeet Fuller M.D. JACQUARD LOOM CARD CHANGER SURGEON: None. PROCEDURES: 1. Esophagogastroduodenoscopy, diagnostic. 2. Colonoscopy with snare polypectomy and control of hemorrhage with submucosal injection and Hemocl ip placement. MEDICATIONS: See anesthesia record. FINDINGS: After discussion of the risks, benefits and alternatives of the procedure, informed consen t was obtained and witnessed. Pre-endoscopic cardiopulmonary examination was satisfactory. Timeout was performed before sedation was achieved. Sedation was achieved with anesthesia assistance in the endoscopy unit. A Pentax adult upper endoscope was placed into the oropharynx and passed through the cricopharyngeus under direct visualization. The esophageal mucosa appeared normal. The endoscope w as advanced into the stomach. Forward and retroflexed views of the entire gastric mucosa were obtain ed. The gastric mucosa appeared normal. The endoscope was advanced beyond the pylorus and into the first and second portions of the duodenum, which also appeared normal. The upper endoscope was then completely withdrawn and the patient was repositioned. Digital rectal exam was performed which demonstrated external hemorrhoids with skin tags. A Pentax a dult colonoscope was inserted into the anus and passed forward to the cecum in the usual fashion. Th e cecal base was identified by the appendiceal orifice as well as the ileocecal valve. The terminal ileum was not intubated. The colonoscope was then slowly withdrawn in a gradual and circumferential manner with careful examination of the entire colonic mucosa. The quality of the prep was adequate. In the sigmoid colon, there is a friable pedunculated polyp measuring 1 cm in diameter. This was at 35 cm from the anal verge. The polyp was completely removed with hot snare and retrieved for pathol ogy. Following polypectomy, there was some transient oozing of blood from the polypectomy site. I i njected 1 mL of 1:10,000 epinephrine and hemostasis was achieved. I then placed 2 Hemoclips across t he base of the polypectomy site and hemostasis was maintained. One Hemoclip miss fired and was left in the colonic lumen in the sigmoid colon. The remainder of the colonic mucosa appeared normal. Ret roflexion in the rectum was normal. The colonoscope was then completely withdrawn and the patient al lowed to recover. The patient tolerated the procedure well. There were no immediate post-procedure complications. IMPRESSION: 1. Normal esophagogastroduodenoscopy. 2. A 1-cm friable pedunculated polyp in the sigmoid colon at 35 cm. Removed with hot snare and retr ieved for pathology. 3. Oozing of blood from the polypectomy site following polypectomy. Hemostasis achieved with 1 mL o f submucosal epinephrine injection and placement of two Hemoclips to the polypectomy site. 4. Otherwise, normal colonoscopy to the cecum. RECOMMENDATIONS: 1. Advance diet. 2. No repeat colonoscopy is recommended, due to the patient's age and comorbidities. 3. If possible, I would recommend waiting 2 weeks prior to starting any new anticoagulation or antip latelet therapy, to allow the polypectomy site to heal, and reduce the risk of post-polypectomy bleed ing.
[2017-07-27] MEDS ORDERED: Propofol 200 MG/20 ML VIAL ONE (14:00)
[2017-07-27 14:25] LABS: Vancomycin, Trough 8.8 ug/mL
[2017-07-27] MEDS: Vancomycin HCl 750 MG in Sodium Chloride 0.9% 250 ML 250 ML IVPB SCH (15:37)
[2017-07-28] MEDS: Vancomycin HCl 750 MG in Sodium Chloride 0.9% 250 ML 250 ML IVPB SCH ×2 (02:48→16:27)
[2017-07-28] MEDS: cloNIDine 0.1 MG TAB PO SCH ×3 (05:28→21:14)
[2017-07-28 06:18] LABS: Anion Gap 9 mmol/L (10-20); BUN (Urea Nitrogen) 8 mg/dL (9.8-20.1); Calc. Creatinine Clearance 61 mL/min (70-130); Calcium 9.1 mg/dL (7.8-10.44); Carbon Dioxide 21 mmol/L (23-31); Chloride 109 mmol/L (98-107); Estimated GFR-MDRD 76
[2017-07-28] MEDS: Amlodipine 10 MG TAB PO SCH (09:30)
[2017-07-28] MEDS: Folic Acid 1 MG TAB PO SCH ×2 (09:30→20:32)
[2017-07-28] MEDS: metroNIDAZOLE 500 MG TAB PO SCH ×2 (09:30→20:32)
[2017-07-28] MEDS: Aspirin 81 mg Enteric Coated Tablet PO SCH (09:30)
[2017-07-28] MEDS: Senokot S 8.6-50 MG TAB PO SCH ×2 (09:31→20:32)
[2017-07-28] MEDS: Heparin 5,000 UNITS/ML VIAL SC SCH ×2 (09:31→20:31)
[2017-07-28] MEDS: Piperacillin/Tazobactam 2.25 GM in Sodium Chloride 0.9% 100 ML IVPB SCH ×2 (09:31→20:31)
[2017-07-28] MEDS ORDERED: Losartan Potassium 25 MG TAB PO SCH (11:20)
[2017-07-28] MEDS: Dextrose 5 %-0.45 % NaCl 1,000 ML IV SCH (12:04)
--- NOTE | 2017-07-28 15:00 | PRG ---
DATE OF SERVICE: 07/28/2017 SUBJECTIVE: The patient seen and examined at the bedside. She is doing quite well. She does not [place] ve much complains to offer. She ate her breakfast. OBJECTIVE: VITAL SIGNS: Blood pressure is 180/78, pulse is 61, temperature 99.0, maximal temperature is 99.8, r espiratory rate is 17, and O2 saturation is 97% on room air. GENERAL: She is not in any distress. She is not in any pain during my visit. HEENT: Atraumatic, normocephalic. Eyes PERRLA. Conjunctivae pinkish. Oral mucosa is moist. NECK: Supple. LUNGS: Few crackles at both bases. No wheezing, no rales. CARDIOVASCULAR: S1, S2 normal. Harsh systolic murmur, most audible in the left upper sternal border of the sternum. ABDOMEN: Soft, nontender, bowel sounds are present, no organomegaly. EXTREMITIES: Ulcer of the left great toe present, no changes. No clubbing, cyanosis or edema. Puls es are diminished on both tibialis posterior and dorsalis pedis arteries bilaterally similar. NEUROLOGIC: She is alert and oriented x3. There is no any motor deficit. She follows my commands. She answers my questions properly. LABORATORY DATA: None today except for sodium which is 135, potassium 4.4, chloride 109, CO2 of 21, BUN 18, creatinine 0.88, glucose is 105, and calcium is 9.1. Microbiology as before. IMPRESSION: 1. Left great toe early ulcer with possible osteomyelitis. The patient is on vancomycin and Zosyn. We will continue both antibiotics. Vascular surgeon is going to make a decision about further possi ble options in terms of revascularization to help her healing. 2. Severe peripheral arterial disease. 3. Acute kidney injury with metabolic acidosis, resolved. 4. Chronic kidney disease. 5. Hypertension, which is still an issue, is not well controlled. I am going to start her on her lo sartan regular home dose once a day along with her amlodipine and metoprolol. 6. Polyp in the cecum, status post removal and bleeding post-procedure which was stopped with epinep hrine injection and placement of two Hemoclips. No signs of any bleeding at this time. This is base d on the findings during colonoscopy done by Dr. Fuller, yesterday. EGD was done too and it was negati ve. 7. Anemia status post GI surveillance. This polyp was found at sigmoid colon at 35 cm. PLAN: Plan is to continue her current regimen with IV antibiotics while waiting for vascular surgeon to make decisions regarding her revascularization procedure.
[2017-07-29 02:15] LABS: Vancomycin, Trough 14.1 ug/mL
[2017-07-29] MEDS: Dextrose 5 %-0.45 % NaCl 1,000 ML IV SCH ×2 (02:28→21:58)
[2017-07-29] MEDS: Vancomycin HCl 750 MG in Sodium Chloride 0.9% 250 ML 250 ML IVPB SCH (02:28)
[2017-07-29] MEDS: cloNIDine 0.1 MG TAB PO SCH ×3 (05:27→20:50)
[2017-07-29] MEDS: Aspirin 81 mg Enteric Coated Tablet PO SCH (09:01)
[2017-07-29] MEDS: Folic Acid 1 MG TAB PO SCH ×2 (09:01→20:49)
[2017-07-29] MEDS: Amlodipine 10 MG TAB PO SCH (09:01)
[2017-07-29] MEDS: metroNIDAZOLE 500 MG TAB PO SCH (09:01)
[2017-07-29] MEDS: Senokot S 8.6-50 MG TAB PO SCH ×2 (09:02→21:35)
[2017-07-29] MEDS: Losartan Potassium 25 MG TAB PO SCH (09:02)
[2017-07-29] MEDS: Heparin 5,000 UNITS/ML VIAL SC SCH ×2 (09:02→20:49)
[2017-07-29] MEDS: Piperacillin/Tazobactam 2.25 GM in Sodium Chloride 0.9% 100 ML IVPB SCH ×2 (09:03→20:48)
--- NOTE | 2017-07-29 12:46 | PRG ---
DATE OF SERVICE: 07/29/2017 SUBJECTIVE: The patient is seen and examined at the bedside. She is doing quite well. She has some mild to moderate pain in her left foot. Her appetite is fair. She would like to go home. Her daug hter is present in the room during my visit. She is asking me questions about her further workup. OBJECTIVE: VITAL SIGNS: Blood pressure is 180/80, pulse is 60, temperature is 99.9, respiratory rate is 18, O2 saturation is 98% on room air. GENERAL: She is not in any distress during my evaluation. HEENT: Eyes are PERRLA. Sclerae are nonicteric. Oral mucosa is moist. NECK: Supple, no lymphadenopathy. LUNGS: Clear. HEART: S1, S2 normal. There is a harsh systolic murmur in all precordium. ABDOMEN: Soft, nontender, bowel sounds are present, no organomegaly. EXTREMITIES: Left foot with previous identified unchanged ulcer at the bottom of the first proximal phalanx head and distal phalanx base. NEUROLOGIC: She is alert and oriented x3. There is not any motor deficits present. Cranial nerves are intact. LABORATORY DATA: None today except for vancomycin trough which 14.1 IMPRESSION: 1. Left great toe area ulcer with osteomyelitis. The patient is on vancomycin and Zosyn. CT angiog autumn showed significant blockages and vascular surgeon is going to make decision about further step in the treatment of this problem. For now, we will continue IV antibiotics. 2. Severe peripheral arterial disease as mentioned above. 3. Acute kidney injury with metabolic acidosis, resolved. 4. Chronic kidney disease. 5. Anemia status post EGD which was normal and colonoscopy with a finding of polyp in sigmoid colon at 35 cm and status post removal with hot snare and retrieved for pathology. Also, status post oozin g of blood from the polypectomy site. Following polypectomy and homeostasis with epinephrine injecti on and placement of two Hemoclips to the polypectomy site. 6. Hypertension. I going to change her amlodipine to nifedipine, which I believe is going to add so me additional effect on her blood pressure. 7. Chronic kidney disease, improved with normal creatinine at the time of today's visit. 8. Metabolic acidosis, resolved. PLAN: Continue IV antibiotics, cardiovascular surgeon is going to make a decision about further cory gement of her vascular supply. As mentioned above, her amlodipine is going to be changed to nifedipi ne, which seems to be stronger. We will continue her other blood pressure medications which are losa rtan 100 mg once a day, metoprolol succinate 50 mg once a day. Also, we will continue her metronidaz ole twice a day orally for Trichomonas vaginalis.
--- NOTE | 2017-07-29 17:13 | CON ---
DATE OF CONSULTATION: 07/29/2017 REASON FOR CONSULTATION: Left foot ischemia with ulceration and evidence of bone changes. HISTORY OF PRESENT ILLNESS: A 76-year-old who has a history of hypertension and was admitted on 07/22/2017 when she presented with nonhealing wounds in the left foot for the past month before admission. Patient was seen by geophysical laboratory chief in the outpatient setting and treated with oral antimicrobials, eventually ended up admitted. Initial findings included a temperature of 97.6, pulse 53. There was an ulcer in the left first toe and some evidence of gangrenous changes. Initial creatinine was elevated at 4, vascular surgery consulted and they felt that she would need an angiogram, but first attempts would have to be made at improving her glomerular filtration rate to avoid progression towards end-stage renal disease. She was seen by Dr. Villa and over the past few days the patient's creatinine has improved down to 0.8. She had an angiogram with runoff to the lower extremities 3 days ago, results are discussed below. X-ray showed some changes in the foot. Currently, Ms. Vincent is awake. She knows she is in the hospital, could not tell me the name of the hospital or the date, but she seems to follow commands. Recollection is fairly decent. No headaches , visual symptoms, sore throat, odynophagia, dysphagia, no dyspnea or chest pain , no abdominal pain or diarrhea. Voiding without difficulty. No back pain. No pain in the foot. She has numbness in the lower extremities. PAST MEDICAL HISTORY: Includes, hypertension, peripheral vascular disease, hernia repair. ALLERGIES: None. MEDICATIONS: Had been on Bactrim, metoprolol, hydrochlorothiazide, losartan, Norvasc and amiloride. FAMILY HISTORY: Noncontributory. SOCIAL HISTORY: Current smoker. CURRENT MED PANEL: Includes Flagyl, Zosyn, vancomycin. PHYSICAL EXAMINATION: VITAL SIGNS: T-max 100, she is now on 99.7; blood pressure 160/72; pulse is 59 ; respirations 18; O2 sat 99%. SKIN: Shows gangrenous changes in the left first toe all the way to the first MPJ skin site with ulcerations. Ischemia noted at the distal tip of the second , third, and fourth toes as well. Peripheral IV access. No Santana catheter. No lymphadenopathy. HEENT: Ocular movements are conjugate. A little bit of conjunctival hyperemia. Oral cavity with still quite a few teeth in place with marked decay and gum disease. NECK: Supple, no jugular venous distention, no carotid bruits, no thyromegaly. LUNGS: With symmetric clear breath sounds, harsh 3/6 aortic murmur, holosystolic murmur at the apex as well, 2/6. HEART: S1, S2, with regular rate. No S3. ABDOMEN: Flat, soft, not distended or tender. No ascites. No bladder distention. No organomegaly. EXTREMITIES: No joint inflammatory activity outside the involved area. Pulses are not palpable in popliteal and dorsalis pedis. Cap refill was delayed. She is able to move extremities, but she is awake, oriented, follows commands, could not tell me the date. LABORATORY: White cell count 6.8, on arrival was 10.9 with 73% neutrophils and now hemoglobin 8.1, platelets 381 with 74% neutrophils, retic count 1.8. Chemistry: Creatinine down from 4 to 0.8. Urinalysis with 21-50 WBCs and vancomycin trough 14. Microbiology: Negative blood cultures and urine culture and runoff with aortic angiogram with evidence of multifocal areas of narrowing in both right and left lower extremity arterial supply. There is complete obstruction of the left popliteal artery level with some reconstitution left perineal in the proximal calf which is a single vessel runoff to the left lower extremity, multifocal areas of narrowing, occlusion of right anterior tibial and posterior tibial. Foot x-ray from 07/22/2017 with erosion medial margin proximal phalanx, left great toe. ASSESSMENT: 1. Hypertension, peripheral vascular disease. 2. Gangrene of the left first toe and distal aspect of the second and third toes as well. DISCUSSION: The main issue at hand is to evaluate feasibility for revascularization. Dr. Cobian will determine this and then define if the percutaneous approach of open vascularization would be recommended. The runoff is poor in left lower extremity and this is a poor harbinger for any chance of left foot salvage. She may end up with a left BKA. Discontinue Flagyl and vancomycin, continue Zosyn alone for now. Eventually, transitioned to oral antimicrobials where the very little chance for salvage of the left foot in the medium term. MTDD
[2017-07-30] MEDS: Acetaminophen 325 MG TAB PO PRN (04:23)
[2017-07-30] MEDS: cloNIDine 0.1 MG TAB PO SCH ×3 (05:21→21:28)
[2017-07-30] MEDS: Dextrose 5 %-0.45 % NaCl 1,000 ML IV SCH ×2 (05:22→19:11)
[2017-07-30] MEDS: Piperacillin/Tazobactam 2.25 GM in Sodium Chloride 0.9% 100 ML IVPB SCH ×2 (09:26→21:31)
[2017-07-30] MEDS: NIFEdipine XL 60 MG TAB PO SCH (09:27)
[2017-07-30] MEDS: Heparin 5,000 UNITS/ML VIAL SC SCH ×2 (09:27→21:28)
[2017-07-30] MEDS: Losartan Potassium 25 MG TAB PO SCH (09:27)
[2017-07-30] MEDS: Aspirin 81 mg Enteric Coated Tablet PO SCH (09:27)
[2017-07-30] MEDS: Senokot S 8.6-50 MG TAB PO SCH ×2 (09:28→21:28)
[2017-07-30] MEDS: Folic Acid 1 MG TAB PO SCH ×2 (09:28→21:28)
--- NOTE | 2017-07-30 17:16 | PDOC.PN ---
- Subjective Encounter Start Date: 07/30/17 Encounter Start Time: 09:30 Patient seen and examined. No new complaints. No overnight events. No CP/SOB - Objective Resuscitation Status: Resuscitation Status FULL:Full Resuscitation MAR Reviewed: Yes Vital Signs & Weight: Vital Signs (12 hours) Temp Pulse Resp BP BP Pulse Ox 07/30/17 15:45 98.5 F 60 18 140/68 98 07/30/17 13:40 147/64 H 07/30/17 11:30 98.8 F 56 L 18 147/64 H 07/30/17 09:27 55 L 180/74 H 07/30/17 07:20 98.8 F 56 L 18 180/74 H 97 07/30/17 05:21 187/77 H Weight Admit Weight 149 lb Weight 150 lb I&O: 07/29/17 07/30/17 07/31/17 06:59 06:59 06:59 Intake Total 2210 3210 Output Total 1600 2250 Balance 610 960 Result Diagrams: 07/26/17 04:15 07/28/17 05:05 EKG Reviewed by me: Yes (Tele SR) Phys Exam - Physical Examination Constitutional: NAD Respiratory: no wheezing, no rhonchi Cardiovascular: RRR, no rub Gastrointestinal: soft, non-tender, positive bowel sounds Musculoskeletal: no edema gangrene - unchanged Neurological: moves all 4 limbs Psychiatric: A&O x 3 Dx/Plan - Plan cont current plan of care, continue antibiotics, DVT proph w/heparin IMPRESSION: 1. Gangrene of toes of left foot with ?Osteomyelitis - on Zosyn 2. Severe PVD - CV following 3. Severe Hyperkalemia - drug induced - resolved 4. CELESTINA with Metabolic acidosis 5. CKD 2 6. HTN 7. Anemia - ?etio s/p EGD/Colon 8. Folic acid def - on replacement 9. Trichomonas Vag - On Flagyl PLAN: * Angio LE in AM/ CV following * AM labs * Cont IVF to D51/2 NS * Cont other meds as below Review of Systems - Review of Systems Respiratory: negative: Cough, Dry, Shortness of Breath, Hemoptysis, SOB with Excertion, Pleuritic Pain, Sputum, Wheezing Cardiovascular: negative: Chest Pain, Palpitations, Orthopnea, Paroxysmal Noc. Dyspnea, Edema, Light Headedness Gastrointestinal: negative: Nausea, Vomiting, Abdominal Pain, Diarrhea, Constipation, Melena, Hematochezia - Medications/Allergies Allergies/Adverse Reactions: Allergies Allergy/AdvReac Type Severity Reaction Status Date / Time No Known Allergies Allergy Verified 07/22/17 23:44 Medications: Current Medications Acetaminophen (Tylenol) 650 mg PO Q4H PRN PRN Reason: Headache/Fever or Pain Last Admin: 07/30/17 04:23 Dose: 650 mg Aspirin (Ecotrin) 81 mg PO DAILY [facility] Last Admin: 07/30/17 09:27 Dose: 81 mg Bisacodyl (Dulcolax) 10 mg PO DAILYPRN PRN PRN Reason: Constipation Last Admin: 07/23/17 18:02 Dose: 10 mg Clonidine (Catapres) 0.1 mg PO Q4H PRN PRN Reason: Systolic BP > 180 Clonidine (Catapres) 0.1 mg PO Q8HR [facility] Last Admin: 07/30/17 13:40 Dose: 0.1 mg Folic Acid (Folvite) 1 mg PO BID [facility] Last Admin: 07/30/17 09:28 Dose: 1 mg Heparin Sodium (Porcine) (Heparin) 5,000 units SC BID [facility] Last Admin: 07/30/17 09:27 Dose: 5,000 units Hydralazine HCl (Apresoline) 10 mg SLOW IVP Q4H PRN PRN Reason: SBP Greater Than 180 Last Admin: 07/27/17 09:45 Dose: 10 mg Piperacillin Sod/Tazobactam (Sod 2.25 gm/ Sodium Chloride) 100 mls @ 200 mls/ hr IVPB Q12HR [facility] Last Admin: 07/30/17 09:26 Dose: 100 mls Dextrose/Sodium Chloride (D5 1/2 Ns) 1,000 mls @ 75 mls/hr IV .[id number] [facility] Last Admin: 07/30/17 05:22 Dose: 1,000 mls Losartan Potassium (Cozaar) 100 mg PO DAILY [facility] Last Admin: 07/30/17 09:27 Dose: 100 mg Metoprolol Succinate (Toprol Xl) 50 mg PO DAILY [facility] Last Admin: 07/30/17 09:28 Dose: 50 mg Nifedipine (Procardia Xl) 60 mg PO DAILY [facility] Last Admin: 07/30/17 09:27 Dose: 60 mg Ondansetron HCl (Zofran) 4 mg IVP Q6H PRN PRN Reason: Nausea/Vomiting Pantoprazole Sodium (Protonix) 40 mg PO BID [facility] Last Admin: 07/30/17 09:28 Dose: 40 mg Senna/Docusate Sodium (Senokot S) 1 tab PO BID [facility] Last Admin: 07/30/17 09:28 Dose: 1 tab Sodium Chloride (Flush - Normal Saline) 10 ml IVF Q12HR [facility] Last Admin: 07/30/17 09:28 Dose: Not Given Sodium Chloride (Flush - Normal Saline) 10 ml IVF PRN PRN PRN Reason: Saline Flush
[2017-07-30] MEDS: Bisacodyl 5 MG TAB PO PRN (17:57)
[2017-07-31 05:25] LABS: #Basophils 0.1 thou/uL (0.0-0.2); #Eosinphils 0.2 thou/uL (0.0-0.7); #Lymphocytes 1.9 thou/uL (1.20-3.40); #Monocytes 1.2 thou/uL (0.11-0.59); #Neutrophils 7.7 thou/uL (1.40-6.50); %Basophils 0.5 % (0.0-1.0); %Eosinophils 1.5 % (0.0-10.0); %Lymphocytes 17.4 % (21.0-51.0); %Monocytes 10.9 % (0.0-10.0); Hematocrit 23.8 % (36.0-47.0); Red Blood Cell (RBC) Count 2.39 mill/uL (4.20-5.40)
[2017-07-31 05:51] LABS: Anion Gap 9 mmol/L (10-20); BUN (Urea Nitrogen) 6 mg/dL (9.8-20.1); BUN/Creatinine Ratio 7.14; Calc. Creatinine Clearance 63 mL/min (70-130); Calcium 8.8 mg/dL (7.8-10.44); Carbon Dioxide 20 mmol/L (23-31); Chloride 111 mmol/L (98-107); Estimated GFR-MDRD 80; Phosphorus 2.6 mg/dL (2.3-4.7)
[2017-07-31] MEDS: cloNIDine 0.1 MG TAB PO SCH ×3 (06:46→22:16)
[2017-07-31] MEDS: Folic Acid 1 MG TAB PO SCH ×2 (09:06→20:16)
[2017-07-31] MEDS: Losartan Potassium 25 MG TAB PO SCH (09:06)
[2017-07-31] MEDS: NIFEdipine XL 60 MG TAB PO SCH (09:06)
[2017-07-31] MEDS: Piperacillin/Tazobactam 2.25 GM in Sodium Chloride 0.9% 100 ML IVPB SCH (09:07)
[2017-07-31] MEDS: Senokot S 8.6-50 MG TAB PO SCH ×2 (09:07→20:16)
[2017-07-31] MEDS: Dextrose 5 %-0.45 % NaCl 1,000 ML IV SCH ×3 (10:26→16:27)
[2017-07-31] MEDS ORDERED: Heparin 1000 UNIT/NS 500ML(OR) 500 ML ONE (12:51)
--- NOTE | 2017-07-31 13:40 | PDOC.PN ---
- Subjective Encounter Start Date: 07/31/17 Encounter Start Time: 10:30 Patient seen and examined. No new complaints. No overnight events. No CP/SOB. - Objective Resuscitation Status: Resuscitation Status FULL:Full Resuscitation MAR Reviewed: Yes Vital Signs & Weight: Vital Signs (12 hours) Temp Pulse Resp BP BP BP BP 07/31/17 12:38 180/77 H 07/31/17 11:05 99.6 F 57 L 16 197/78 H 07/31/17 09:06 61 07/31/17 08:40 99.1 F 61 18 07/31/17 07:50 61 17 183/76 H 07/31/17 06:46 154/70 H 07/31/17 04:00 99.6 F 60 18 181/72 H Pulse Ox 07/31/17 12:38 07/31/17 11:05 97 07/31/17 09:06 07/31/17 08:40 95 07/31/17 07:50 95 07/31/17 06:46 07/31/17 04:00 97 Weight Admit Weight 149 lb Weight 150 lb I&O: 07/30/17 07/31/17 08/01/17 06:59 06:59 06:59 Intake Total 3210 2181 Output Total 2250 1375 Balance 960 806 Result Diagrams: 07/31/17 04:14 07/31/17 04:14 EKG Reviewed by me: Yes (Tele SR) Phys Exam - Physical Examination Constitutional: NAD Respiratory: no wheezing, no rhonchi Cardiovascular: RRR, no rub Gastrointestinal: soft, non-tender, positive bowel sounds Musculoskeletal: no edema gangrene + Neurological: moves all 4 limbs Dx/Plan - Plan cont current plan of care, plan discussed w/ family, continue antibiotics, DVT proph w/heparin IMPRESSION: 1. Gangrene of toes of left foot with ?Osteomyelitis - on Zosyn 2. Severe PVD - CV following 3. Severe Hyperkalemia - drug induced - resolved, Losartan restarted 4. CELESTINA with Metabolic acidosis - improved 5. CKD 2 6. HTN 7. Anemia - ?etio s/p EGD/Colon 8. Folic acid def - on replacement 9. Trichomonas Vag PLAN: * Angio LE today * Cont D51/2 NS @50 ml/hr * Cont other meds as below Review of Systems - Review of Systems Respiratory: negative: Cough, Dry, Shortness of Breath, Hemoptysis, SOB with Excertion, Pleuritic Pain, Sputum, Wheezing Cardiovascular: negative: Chest Pain, Palpitations, Orthopnea, Paroxysmal Noc. Dyspnea, Edema, Light Headedness Gastrointestinal: negative: Nausea, Vomiting, Abdominal Pain, Diarrhea, Constipation, Melena, Hematochezia Neurological: negative: Weakness, Numbness, Incoordination, Change in Speech, Confusion, Seizures - Medications/Allergies Allergies/Adverse Reactions: Allergies Allergy/AdvReac Type Severity Reaction Status Date / Time No Known Allergies Allergy Verified 07/22/17 23:44 Medications: Current Medications Acetaminophen (Tylenol) 650 mg PO Q4H PRN PRN Reason: Headache/Fever or Pain Last Admin: 07/30/17 04:23 Dose: 650 mg Aspirin (Ecotrin) 81 mg PO DAILY [facility] Last Admin: 07/30/17 09:27 Dose: 81 mg Bisacodyl (Dulcolax) 10 mg PO DAILYPRN PRN PRN Reason: Constipation Last Admin: 07/30/17 17:57 Dose: 10 mg Clonidine (Catapres) 0.1 mg PO Q4H PRN PRN Reason: Systolic BP > 180 Clonidine (Catapres) 0.1 mg PO Q8HR [facility] Last Admin: 07/31/17 12:38 Dose: 0.1 mg Folic Acid (Folvite) 1 mg PO BID [facility] Last Admin: 07/31/17 09:06 Dose: 1 mg Heparin Sodium (Porcine) (Heparin) 5,000 units SC BID [facility] Last Admin: 07/30/17 21:28 Dose: 5,000 units Hydralazine HCl (Apresoline) 10 mg SLOW IVP Q4H PRN PRN Reason: SBP Greater Than 180 Last Admin: 07/27/17 09:45 Dose: 10 mg Piperacillin Sod/Tazobactam (Sod 2.25 gm/ Sodium Chloride) 100 mls @ 200 mls/ hr IVPB Q12HR [facility] Last Admin: 07/31/17 09:07 Dose: 100 mls Dextrose/Sodium Chloride (D5 1/2 Ns) 1,000 mls @ 50 mls/hr IV .Q20H [facility] Losartan Potassium (Cozaar) 100 mg PO DAILY [facility] Last Admin: 07/31/17 09:06 Dose: 100 mg Metoprolol Succinate (Toprol Xl) 50 mg PO DAILY [facility] Last Admin: 07/31/17 09:07 Dose: 50 mg Nifedipine (Procardia Xl) 60 mg PO DAILY [facility] Last Admin: 07/31/17 09:06 Dose: 60 mg Ondansetron HCl (Zofran) 4 mg IVP Q6H PRN PRN Reason: Nausea/Vomiting Pantoprazole Sodium (Protonix) 40 mg PO DAILY [facility] Senna/Docusate Sodium (Senokot S) 1 tab PO BID [facility] Last Admin: 07/31/17 09:07 Dose: 1 tab Sodium Chloride (Flush - Normal Saline) 10 ml IVF Q12HR [facility] Last Admin: 07/31/17 11:34 Dose: Not Given Sodium Chloride (Flush - Normal Saline) 10 ml IVF PRN PRN PRN Reason: Saline Flush
[2017-07-31] MEDS ORDERED: Fentanyl 100 MCG/2 ML VIAL ONE (14:12)
[2017-07-31] MEDS ORDERED: Heparin 10,000 UNITS/1 ML VIAL ONE (14:12)
[2017-07-31 15:01] VITALS: BMI 20.5
[2017-07-31] MEDS ORDERED: traMADol HCl 50 MG TAB PO PRN (15:38)
[2017-07-31] MEDS: Aspirin 81 mg Enteric Coated Tablet PO SCH (16:27)
[2017-07-31] MEDS: Heparin 5,000 UNITS/ML VIAL SC SCH ×2 (16:27→20:16)
[2017-07-31] MEDS: Piperacillin/Tazobactam 3.375 GM in Sodium Chloride 0.9% 100 ML IVPB SCH ×2 (16:28→20:18)
--- NOTE | 2017-07-31 17:56 | OP ---
PREOPERATIVE DIAGNOSIS: Gangrene, left foot. POSTOPERATIVE DIAGNOSIS: Gangrene, left foot. PROCEDURE: Aortogram, left lower extremity runoff with crossing of a several chronic total occlusion s in the superficial femoral artery and a balloon angioplasty with drug-coated 4 x 150 Lutonix balloo n. SURGEON: Rito Cobian M.D. ANESTHESIA: 1% lidocaine. CONTRAST: 52 mL. FLUOROSCOPY: 37.6 minutes. FINDINGS: The patient had a patent distal aorta, bilateral common and external iliac arteries. Righ t common femoral artery was patent as was the origin of the superficial femoral artery with disease. The left superficial femoral artery was occluded at the origin and the profunda was patent. The lef t superficial femoral artery reconstituted about 2 cm distally for about a 2 cm segment and then occl uded again for about 8-10 cm. It was then patent to the adductor canal where it had a subtotal occlu david. The popliteal artery was occluded at the knee joint, then reconstituted as the tibioperoneal t runk with stenosis and peroneal artery was the only artery that was visualized distally in the leg. Following completion of the procedure, the left superficial femoral artery was patent throughout with brisk flow and mild to moderate luminal irregularities. The popliteal artery remained occluded at t he knee joint. PROCEDURE IN DETAIL: After prepping and draping, ultrasound guided puncture of the right common femo ral artery was performed after local anesthetic had been infiltrated. A 5-Turkmen dilator and sheath were placed and then the Contra catheter where a hand injection of aortoiliac vessels was obtained. With the assistance of the Contra catheter and then a glide catheter, glide catheter was advanced ove r the iliac bifurcation into the common femoral artery where runoff was obtained. A Glidewire magic torque wire would not pass easily and a Bentson wire was left in the profunda femoral artery on the l eft and a 6-Turkmen destination sheath was passed while the patient was heparinized. Following this, a Glidewire and then Frontrunner were used to try and cross the occlusions. The Frontrunner did nego tiate the first occlusion; however, would not the second. A Dallas was then passed over a wire and with the assistance of the Glidewire and then a Frontrunner, again the second occlusion was crossed. With the Dallas distally, an 0.014 wire was attempted to be used to cross the popliteal artery occl usion, unsuccessfully. Following this, an 0.038 magic torque wire was exchanged for the loose wire a nd then a 3 x 150 balloons x2 were used to inflate the entire SFA. A 4 x 150 Lutonix balloon was the n used to inflate from the proximal aspect of the SFA to the mid SFA and a second similar balloon was then used to dilate the distal SFA for a total of 300 cm. Completion showed brisk runoff through th is vessel with mild to moderate irregularities. Sheath was then removed after protamine given to par tially reverse the heparin, oral Plavix was given.
[2017-07-31] MEDS ORDERED: Clopidogrel Bisulfate 75 MG TAB PO SCH (18:00)
[2017-08-01] MEDS: Piperacillin/Tazobactam 3.375 GM in Sodium Chloride 0.9% 100 ML IVPB SCH ×2 (03:47→09:08)
[2017-08-01] MEDS: cloNIDine 0.1 MG TAB PO SCH (05:04)
[2017-08-01] MEDS: Dextrose 5 %-0.45 % NaCl 1,000 ML IV SCH (05:07)
[2017-08-01 05:19] LABS: #Basophils 0.1 thou/uL (0.0-0.2); #Eosinphils 0.1 thou/uL (0.0-0.7); #Lymphocytes 1.2 thou/uL (1.20-3.40); #Monocytes 1.2 thou/uL (0.11-0.59); #Neutrophils 7.1 thou/uL (1.40-6.50); %Basophils 0.6 % (0.0-1.0); %Eosinophils 1.3 % (0.0-10.0); %Lymphocytes 12.8 % (21.0-51.0); %Monocytes 11.8 % (0.0-10.0); Hematocrit 23.1 % (36.0-47.0); Red Blood Cell (RBC) Count 2.33 mill/uL (4.20-5.40); White Blood Cell (WBC) Count 9.7 thou/uL (4.8-10.8)
[2017-08-01 05:25] LABS: Anion Gap 8 mmol/L (10-20); BUN (Urea Nitrogen) 9 mg/dL (9.8-20.1); Calc. Creatinine Clearance 55 mL/min (70-130); Calcium 8.4 mg/dL (7.8-10.44); Carbon Dioxide 22 mmol/L (23-31); Chloride 111 mmol/L (98-107); Estimated GFR-MDRD 67
[2017-08-01] MEDS ORDERED: Clopidogrel Bisulfate 75 MG TAB PO SCH (09:00)
[2017-08-01] MEDS: Losartan Potassium 25 MG TAB PO SCH (09:08)
[2017-08-01] MEDS: NIFEdipine XL 60 MG TAB PO SCH (09:08)
[2017-08-01] MEDS: Senokot S 8.6-50 MG TAB PO SCH (09:09)
[2017-08-01] MEDS: Aspirin 81 mg Enteric Coated Tablet PO SCH (09:09)
[2017-08-01] MEDS: Folic Acid 1 MG TAB PO SCH (09:09)
[2017-08-01] MEDS: Heparin 5,000 UNITS/ML VIAL SC SCH (09:10)
--- NOTE | 2017-08-01 11:57 | PRG ---
DATE OF SERVICE: 08/01/2017 SUBJECTIVE: Ms. Vincent with a moderate pain in the right foot. No respiratory symptoms or abdomina l pain. No diarrhea. Voiding without difficulty. OBJECTIVE: VITAL SIGNS: T-max 99.8; she is now 98.2. Other vital signs are normal. GENERAL: Awake, alert, oriented. LUNGS: Clear. CARDIOVASCULAR: S1, S2, regular rate. EXTREMITIES: Right groin with the access approach for the procedure. Still with necrotic findings i n the left first toe. The patient underwent aortogram, left lower extremity runoff with crossing of several chronic total o cclusions of SFA with balloon angioplasty, and this was a drug-coated Lutonix balloon. ASSESSMENT AND DISCUSSION: Gangrene of the left first toe, status post revascularization. At this p oint recommend discharging patient on oral Cipro and Flagyl for 2 weeks. The first toe is not viable and probably will eventually require amputation.
[2017-08-01 12:12] VITALS: TEMP 98.8
[2017-08-01 12:18] VITALS: BP 156/81
--- NOTE | 2017-08-01 14:16 | DIS ---
DATE OF DISCHARGE: 08/01/2017 DISCHARGE DISPOSITION: Home. FOLLOWUP: 1. Follow up with primary care physician, Dr. Ramirez in 1 week. 2. Follow up with Cardiovascular, Dr. Cobian. 3. Follow up with Infectious Disease, Dr. Willingham. 4. [facility] has been arranged. ALLERGIES: No known drug allergies. The patient was seen and examined on the day of discharge. Denies any new complaints. No chest pain , shortness of breath, palpitations reported. DISCHARGE MEDICATIONS: Aspirin 81 mg daily, Plavix 75 mg daily, ciprofloxacin 500 mg twice a day for next 2 weeks, Flagyl 500 mg 3 times a daily for the next 2 weeks, Procardia XL 60 mg daily, losartan 100 mg daily, hydrochlorothiazide 25 mg daily, folic acid 1 mg daily, clonidine as needed for systol ic blood pressure more than 180. Base met every week x2 was recommended. Primary care physician adv ised to follow. BRIEF HOSPITAL COURSE: The patient is a 76-year-old female with peripheral vascular disease, who pre sented on 07/22/2017 with nonhealing wound of left toes along with discoloration. Please refer to [facility] history and physical for further details. The patient was admitted to the hospital with a diagnosis of acute kidney injury with severe hyperkal emia and gangrene of the toes of the left foot along with questionable osteomyelitis. Her potassium on admission was 7.0 with creatinine 3.96, BUN 67 and sodium of 125. She was recently started on Kelsie trim. Losartan, amiloride, and hydrochlorothiazide along with Bactrim was discontinued. Her renal f unction gradually improved. The patient was found to have anemia with hemoglobin of 7.4. Please note that her hemoglobin on admi ssion was 11.2. For this reason, she was seen by Gastroenterology, Dr. Fuller. She underwent EGD and colonoscopy on 07/27/2017. EGD was normal. Colonoscopy showed 1 cm friable pedunculated polyp in e sigmoid colon at 35 cm that was removed. After renal function stabilized, she underwent a CTA of the aorta with runoff that was consistent wit h peripheral vascular disease. Yesterday, she underwent aortogram with left lower extremity runoff w ith balloon angioplasties. She will continue aspirin and Plavix for now. The patient was also seen by Infectious Disease, Dr. Willingham, who kept her on Zosyn during the hospital stay. This will be changed to ciprofloxacin and Flagyl at discharge. FINAL DIAGNOSES: 1. Acute kidney injury with hyperkalemia, probably medication induced. The patient was on hydrochlo rothiazide, losartan, amiloride, and Bactrim. Amiloride has been discontinued. Her renal function a fter 1 week is recommended. Primary care physician is advised to follow. 2. Severe peripheral vascular disease with gangrene of the toes of the left foot with questionable o steomyelitis. She will continue ciprofloxacin and Flagyl for 2 more weeks. Follow up with Dr. Cobian and Maulik, and Dr. Willingham is recommended. 3. Severe hyperkalemia with potassium 7.0 on admission, resolved. 4. Metabolic acidosis on admission, resolved. 5. Chronic kidney disease, stage 2. 6. Hypertension. 7. Anemia of unclear etiology. Suspected chronic gastrointestinal blood loss. She underwent EGD an d colonoscopy this admission. 8. Folic acid deficiency. 9. Trichomonas vaginalis. 10. Hyponatremia with sodium of 125 on admission, resolved. 11. Mild protein calorie malnutrition. 12. Elevated inflammatory markers. CRP was 5.28. SIGNIFICANT LABORATORY DATA: Reticulocyte 1.8. WBC at discharge is 9.7 with hemoglobin 7.3, potassi um on the day of discharge is 3.9 with BUN 9, creatinine 0.98, bicarbonate of 22 with sodium of 137. Iron profile showed iron of 39, TIBC 175, saturation of 22 with ferritin of 645. Total time coordinating the discharge of this patient was 38 minutes.
--- NOTE | 2017-08-25 15:52 | EKG ---
Test Reason : Blood Pressure : / mmHG Vent. Rate : 047 BPM Atrial Rate : 047 BPM P-R Int : 196 ms QRS Dur : 108 ms QT Int : 476 ms P-R-T Axes : 108 -50 075 degrees QTc Int : 421 ms Marked sinus bradycardia Left anterior fascicular block Left ventricular hypertrophy with repolarization abnormality Abnormal ECG Confirmed by JESSIE RIVERA, STEVEN ([id number]), graphic editor SAMMI NOGUEIRA ([id number]) on 08/25/2017 3:52:07 PM Referred By: Confirmed By:STEVEN ROMAN MD
== END 2017-08-01 13:39 | disposition home health service (06) | DRG 253 ==
LOC: ERS 16:14 → 2NO 19:00
PROVIDERS: ADMIT Hospitalist; ATTEND Hospitalist
PROC: 0DJ08ZZ Inspection of Upper Intestinal Tract, Via Natural or Artificial Opening Endoscopic (ICD-10-PCS; 2017-07-27)
PROC: 0DBN8ZX Excision of Sigmoid Colon, Via Natural or Artificial Opening Endoscopic, Diagnostic (ICD-10-PCS; 2017-07-27)
PROC: 0W3P8ZZ Control Bleeding in Gastrointestinal Tract, Via Natural or Artificial Opening Endoscopic (ICD-10-PCS; 2017-07-27)
PROC: 047L341 Dilation of Left Femoral Artery with Drug-eluting Intraluminal Device, using Drug-Coated Balloon, Percutaneous Approach (ICD-10-PCS; principal; 2017-07-31)
PROC: B41D1ZZ Fluoroscopy of Aorta and Bilateral Lower Extremity Arteries using Low Osmolar Contrast (ICD-10-PCS; 2017-07-31)
DX: I70.268 Atherosclerosis of native arteries of extremities with gangrene, other extremity (principal); N17.9 Acute kidney failure, unspecified; E87.2 Acidosis; E44.1 Mild protein-calorie malnutrition; E87.1 Hypo-osmolality and hyponatremia; M86.8X7 Other osteomyelitis, ankle and foot; A59.01 Trichomonal vulvovaginitis; L97.529 Non-pressure chronic ulcer of other part of left foot with unspecified severity; E53.8 Deficiency of other specified B group vitamins; I12.9 Hypertensive chronic kidney disease with stage 1 through stage 4 chronic kidney disease, or unspecified chronic kidney disease; N18.2 Chronic kidney disease, stage 2 (mild); T50.2X5A Adverse effect of carbonic-anhydrase inhibitors, benzothiadiazides and other diuretics, initial encounter; F17.210 Nicotine dependence, cigarettes, uncomplicated; K64.4 Residual hemorrhoidal skin tags; D50.0 Iron deficiency anemia secondary to blood loss (chronic); D12.5 Benign neoplasm of sigmoid colon; Z68.20 Body mass index [BMI] 20.0-20.9, adult
CPT/HCPCS: 36415; 37224; 74000; 75635; 76942; 80048; 80053; 80069; 80202; 81001; 82553; 82570; 82607; 82728; 82746; 83540; 83550; 83605; 84300; 84484; 85014; 85018; 85025; 85046; 85049; 85347; 85652; 86140; 86850; 86900; 86901; 87040; 87086; 88305; 93005; 93306; 96365; 96375; A4216; C1725; C1769; C2623; G8978-GP-CM; G8979-GP-CK; G8987-GO-CM; G8988-GO-CK; J0360; J1644; J1815; J2543; J2704; J3010; J3370; J7050; J7070

== ENCOUNTER 2017-09-20 10:38 | Inpatient (IN) | payer MEDICARE, MEDICAID ==
[~2017-09-20 10:38] MED LIST: Glycopyrrolate 0.2 MG/ML 5 ML SYRINGE ONE; Labetalol 100 MG/20 ML MDV ONE; Lidocaine 1% PF 5 ML VIAL ONE; Ondansetron HCl/PF 4 MG/2 ML Vial ONE; PHENYLEPHRINE-NS 100 MCG/ML 10 ML SYRINGE ONE; Propofol 200 MG/20 ML VIAL ONE
[2017-09-20] MEDS ORDERED: CEFAZOLIN/Water 2 GM/20 ML SYRINGE ONE (12:13)
[2017-09-20 12:18] LABS: #Lymphocytes 1.5 thou/uL (1.20-3.40); #Neutrophils 9.9 thou/uL (1.40-6.50); %Basophils 0.4 % (0.0-1.0); %Eosinophils 0.3 % (0.0-10.0); %Lymphocytes 12.2 % (21.0-51.0); %Monocytes 8.2 % (0.0-10.0); %Neutrophils 78.9 % (42.0-75.0); Hemoglobin 11.1 g/dL (12.0-16.0); Mean Corpuscular HGB CONC 31.3 g/dL (32.0-36.0); Mean Corpuscular Hemoglobin 30.9 pg (27.0-31.0); Mean Corpuscular Volume 98.7 fl (81.0-99.0); Mean Platelet Volume 6.3 fL (7.4-10.4); Platelet Count 311 thou/uL (130-400); RBC Distribution Width 12.8 % (11.5-14.5); White Blood Cell (WBC) Count 12.6 thou/uL (4.8-10.8)
[2017-09-20 12:40] LABS: Anion Gap 13 mmol/L (10-20); BUN (Urea Nitrogen) 12 mg/dL (9.8-20.1); Calc. Creatinine Clearance 0 mL/min (70-130); Calcium 9.8 mg/dL (7.8-10.44); Carbon Dioxide 27 mmol/L (23-31); Chloride 103 mmol/L (98-107); Estimated GFR-MDRD 79; Glucose 125 mg/dL (83-110); Potassium 3.5 mmol/L (3.5-5.1); Sodium 139 mmol/L (136-145)
[2017-09-20] MEDS ORDERED: Fentanyl 100 MCG/2 ML VIAL ONE (12:54)
[2017-09-20] MEDS ORDERED: Midazolam HCl 2 mg/2 ml Vial ONE (12:54)
[2017-09-20] MEDS ORDERED: Promethazine HCl 25 MG/ML VIAL SLOW IVP PRN (14:05)
[2017-09-20] MEDS ORDERED: Labetalol HCl 100 MG/20 ML VIAL ONE (15:01)
[2017-09-20] MEDS ORDERED: hydrALAZINE 20 MG/ML VIAL ONE (15:34)
[2017-09-20] MEDS ORDERED: Fentanyl 100 MCG/2 ML VIAL SLOW IVP PRN (16:08)
[2017-09-20] MEDS ORDERED: Mag-Al 1200 mg/1200 mg/30 ML UDCUP PO PRN (16:08)
[2017-09-20] MEDS ORDERED: Fleet Enema 133 ML BOT PR PRN (16:08)
[2017-09-20] MEDS ORDERED: Ondansetron HCl/PF 4 MG/2 ML Vial IVP PRN (16:08)
[2017-09-20] MEDS ORDERED: Ondansetron ODT 4 MG TAB PO PRN (16:08)
[2017-09-20] MEDS ORDERED: Sodium Chloride 0.9% 1,000 ML IV SCH (16:08)
[2017-09-20] MEDS ORDERED: Bisacodyl 5 MG TAB PO PRN (16:08)
[2017-09-20] MEDS: HYDROcodone/Acetaminophen 5/325 mg Tablet PO PRN ×2 (17:23→20:30)
--- NOTE | 2017-09-20 17:40 | OP ---
PREOPERATIVE DIAGNOSIS: Gangrene, left foot. PROCEDURE: Left lbwfg-leg-[id number] amputation. SURGEON: Rito Cobian M.D. ANESTHESIA: General. ESTIMATED BLOOD LOSS: 300-400 PROCEDURE: After adequate anesthesia had been obtained, the patient was prepped and draped. Skin wa s marked below the knee for a posterior flap amputation. Incision was made and carried through the s oft tissues dividing the tibia with a Gigli saw and fibula with rib misha. The posterior amputation flap was completed with a knife following which hemostasis was obtained. After irrigating the wound thoroughly, Vicryl sutures were used to close the gastroc over the tibia and fibula. Skin was then closed with ezequiel. The patient tolerated the procedure. Dressings were applied with a knee immobi lizer.
[2017-09-20 18:24] VITALS: BMI 27.2
[2017-09-20] MEDS: Docusate 100 MG CAP PO SCH (20:31)
[2017-09-20] MEDS: Famotidine 20 MG TAB PO SCH (20:31)
[2017-09-20] MEDS: CEFAZOLIN/Water 2 GM/20 ML SYRINGE SLOW IVP SCH (20:31)
[2017-09-21] MEDS: HYDROcodone/Acetaminophen 5/325 mg Tablet PO PRN ×5 (00:42→20:53)
[2017-09-21] MEDS: cloNIDine 0.1 MG TAB PO PRN (04:26)
[2017-09-21 05:32] LABS: #Basophils 0.1 thou/uL (0.0-0.2); #Lymphocytes 1.6 thou/uL (1.20-3.40); #Monocytes 1.2 thou/uL (0.11-0.59); #Neutrophils 10.5 thou/uL (1.40-6.50); %Basophils 0.4 % (0.0-1.0); %Eosinophils 0.2 % (0.0-10.0); %Lymphocytes 11.7 % (21.0-51.0); %Monocytes 8.9 % (0.0-10.0); %Neutrophils 78.9 % (42.0-75.0); Hemoglobin 9.9 g/dL (12.0-16.0); Mean Corpuscular HGB CONC 34.1 g/dL (32.0-36.0); Mean Corpuscular Hemoglobin 33.9 pg (27.0-31.0); Mean Corpuscular Volume 99.5 fl (81.0-99.0); Mean Platelet Volume 6.5 fL (7.4-10.4); Platelet Count 274 thou/uL (130-400); RBC Distribution Width 12.7 % (11.5-14.5); White Blood Cell (WBC) Count 13.4 thou/uL (4.8-10.8)
[2017-09-21 05:45] LABS: Anion Gap 12 mmol/L (10-20); BUN (Urea Nitrogen) 9 mg/dL (9.8-20.1); Calc. Creatinine Clearance 62 mL/min (70-130); Carbon Dioxide 25 mmol/L (23-31); Chloride 104 mmol/L (98-107); Estimated GFR-MDRD 81; Glucose 143 mg/dL (83-110); Potassium 3.6 mmol/L (3.5-5.1); Sodium 137 mmol/L (136-145)
[2017-09-21] MEDS: CEFAZOLIN/Water 2 GM/20 ML SYRINGE SLOW IVP SCH ×3 (06:07→20:53)
[2017-09-21] MEDS: Enoxaparin Sodium 30 MG/0.3 ML SYRINGE SC SCH (08:46)
[2017-09-21] MEDS: Aspirin 81 mg Enteric Coated Tablet PO SCH (08:47)
[2017-09-21] MEDS: Clopidogrel Bisulfate 75 MG TAB PO SCH (08:47)
[2017-09-21] MEDS: Losartan 25 MG TAB PO SCH (08:47)
[2017-09-21] MEDS: NIFEdipine XL 60 MG TAB PO SCH (08:47)
[2017-09-21] MEDS: Docusate 100 MG CAP PO SCH ×2 (08:48→20:52)
[2017-09-21] MEDS: Famotidine 20 MG TAB PO SCH ×2 (08:48→20:52)
--- NOTE | 2017-09-21 14:41 | RAD ---
CHEST ONE VIEW: HISTORY: Fever. FINDINGS: The cardiac silhouette is magnified and at the upper limits of normal in size. The pulmonary vascula ture is unremarkable. The mediastinum is midline with aortic calcification. There is no lobar conso lidation or evidence of pneumothorax. cardiac monitor technician leads overly the chest. IMPRESSION: 1. Atherosclerosis. 2. No active cardiopulmonary abnormalities are otherwise demonstrated. POS: [facility]
--- NOTE | 2017-09-21 14:56 | CON ---
DATE OF SERVICE: 09/21/2017 CARDIOLOGY CONSULTATION REASON FOR CONSULTATION: Arrhythmia. HISTORY OF PRESENT ILLNESS: Ms. Vincent is a very pleasant 77-year-old -[place] female who c omes to the hospital for an amputation. She had gangrene of the left foot and had to undergo amputat ion due to severe PVD and nonhealing wounds. She had this done successfully and yesterday she was in the postoperative state. She was up in the tower and on vital signs, it was noted that should her h eart go really fast at times, so she was transferred down to telemetry for further monitoring. She d enies any chest pain, tightness, pressure. Denies any palpitations. Denies lightheadedness, syncope or presyncope. She states she does not really feel anything on her chest as most of her foot for wh ich she is here for. She has never had any heart problems before. PAST MEDICAL HISTORY: 1. Hypertension. 2. Peripheral vascular disease. 3. Renal artery stenosis. 4. Gangrene on the foot requiring amputation as above. PAST SURGICAL HISTORY: 1. Hernia repair. 2. Amputation of left foot. FAMILY HISTORY: Noncontributory. SOCIAL HISTORY: Former smoker, quit about a month ago. No alcohol or drugs. REVIEW OF SYSTEMS: A 12-point review of systems was done and is all negative unless stated in the his tory of present illness. PHYSICAL EXAMINATION: VITAL SIGNS: Temperature as high as 100.4 earlier today, pulse rate of 112, respiratory rate 20, sat ting 97% on room air, blood pressure 138/90. GENERAL: Awake, alert, oriented x3, in no distress. HEENT: Normocephalic, atraumatic. NECK: Supple. LUNGS: Clear. CARDIOVASCULAR: S1 and S2, had a little run of her rhythm while I was listening to her. She has a g rade 3/6 systolic ejection murmur, mid peaking at the right upper sternal border. Related to the res t of the precordium, she has a second murmur at the apex holosystolic in nature. ABDOMEN: Soft, positive bowel sounds. EXTREMITIES: No edema. Amputation at the level of the ankle. LABORATORY DATA: Laboratory work was reviewed. White count of 13, hemoglobin of 9.9, hematocrit 28, and platelet count of 274. Chemistries were reviewed and unremarkable, just a little bit high at 12 5 and 143. IMAGING DATA: EKG was reviewed and appears to be in atrial tachycardia with other premature beats or PVCs and it is hard to tell most likely premature beats. ASSESSMENT AND PLAN: 1. Atrial tachycardia: I do not think this is atrial fibrillation. Difficult to see flutter waves. Most likely, this is an atrial tachycardia. We will increase her beta kin for now, which she i s only having short runs of nonsustained atrial tachycardia. We will consult Electrophysiology. We will get complete electrolytes to make sure this is not related to electrolyte abnormality. She also had a fever and this may be wrapping up her rhythm. 2. Systolic ejection murmur: May be related to some degree of aortic valve stenosis. We will get a n echocardiogram for reassessment of this. She does have an echo back in July of this year and s he was labeled as having moderate aortic stenosis. She also had moderate aortic regurgitation as a d ouble . 3. Severe peripheral vascular disease per Dr. Cobian. Thank you for letting us participate in the care of your patient. We will follow.
--- NOTE | 2017-09-21 21:18 | CON ---
DATE OF CONSULTATION: 09/21/2017 Devika Johnson, Nurse Practitioner, dictating a scribe for Dr. Rush Snyder. This is an electrophysiology consultation. REFERRING PHYSICIAN: Michael Kelly MD REASON FOR CONSULTATION: Arrhythmia. HISTORY OF PRESENT ILLNESS: Ms. Vincent is a pleasant 77-year-old - [place] female, who originally came to the hospital for amputation of her left foot due to extensive peripheral vascular disease and gangrenous nonhealing wounds. This was performed yesterday by Dr. Cobian and she was originally in the postoperative floor. It was stated that her heart rate with the rapid and a 12-lead EKG was performed suggesting atrial tachycardia. She was transferred to telemetry for additional monitoring. The patient was unaware of her rapid rhythm. Denies any associated lightheadedness, shortness of breath, chest pain , or pressure. She has never had any syncopal or near syncopal episodes. She denies any palpitations, stroke or stroke-like symptoms. She denies any history of rhythm problems for family history of problems. At this point, her only complaint is postoperative pain. PAST MEDICAL HISTORY: 1. Peripheral vascular disease. 2. Renal artery stenosis. 3. Hypertension. 4. Gangrenous wound on the left foot with subsequent amputation in this hospitalization. FAMILY HISTORY: Negative for arrhythmias and sudden cardiac . SOCIAL HISTORY: Former smoker, quit 1 month ago. No alcohol or drug use. REVIEW OF SYMPTOMS: Constitutional: Denies fevers, chills, malaise, or recent weight fluctuations. HEENT: Denies changes in vision, hearing, or difficulty swallowing. Cardiovascular: The patient denies palpitations, heart racing, chest pain, pressure, syncope, or near syncope. She denies any swelling of the extremities. Pulmonary: The patient denies shortness of breath, dyspnea, productive cough, or recent respiratory illness. GI: The patient denies nausea , vomiting, diarrhea, or blood in her stool. : The patient denies frequency , hesitancy, or burning while urinating. Integumentary: Patient does not have any rashes, lesions, or any bruising. Positive for wound from recent amputation. Hematologic: Patient denies easy bruising or blood dyscrasias. Musculoskeletal: The patient is currently not ambulatory, given her recent amputation. Neurologic: The patient denies stroke or stroke-like symptoms including unilateral weakness, speech changes, vision changes, facial droop, or paresthesias. PHYSICAL EXAMINATION: VITAL SIGNS: Most recent vital signs include temperature is 98.6 degrees, pulse is 72, respirations 16, oxygen saturation is 94%, and blood pressure 115/ 59. LABORATORY DATA: Recent lab work hematology on 09/21, WBC 13.4, hemoglobin 9.9 , hematocrit 28.9, platelet count 274. Chemistry panel: Sodium 137, potassium 3.6, chloride 104, carbon dioxide 25, BUN is 9, creatinine 0.83, calcium 9.0, magnesium 1.5. Echocardiogram has been ordered, but not performed at this time. CURRENT MEDICATIONS LIST: [place] as needed, aspirin 81 mg daily, Ancef 2 grams scheduled q.8 hours, clonidine 0.1 mg p.o. p.r.n., Plavix 75 mg daily, Colace p.o. b.i.d., Lovenox 30 mg subcu daily, Pepcid 20 mg p.o. b.i.d., lactulose p.r.n. for constipation, Cozaar 100 mg p.o. daily, Mag-Ox 400 mg p.o. daily, metoprolol succinate 50 mg p.o. b.i.d., nifedipine 60 mg p.o. daily, Zofran as needed for nausea. DATABASE: EKG: A 12-lead EKG performed reveals rapid atrial tachycardia at rate of 100, roughly at a rate of 130 beats per minute with wide QRS complex and right bundle branch block with left axis deviation. Currently on case monitor. The patient has a normal sinus rhythm with rates in the 70s-80 range. IMPRESSION: 1. Paroxysmal atrial tachycardia. 2. Anemia. 3. Peripheral vascular disease. PLAN: We agree with Cardiology that this does not appear to be atrial fibrillation. Review of a 12-lead EKG and telemetry strips suggest the paroxysmal atrial tachycardia. There were no flutter waves visualized. The patient has recently been increased on her beta-kin therapy, which we agree as it is an appropriate therapy at this time. In all alternative therapy could be calcium channel blockers. Should the patient become symptomatic with her arrhythmia or become more persistent. EP study or ablation could be considered in the future. As seen, the patient is asymptomatic at this time with conservative medical treatment as appropriate, but again the patient should become symptomatic or arrhythmias problematic, will consider more aggressive management in the future. Thank you for allowing us to participate in the care of this patient. This is Devika Johnson NP, acting as scribe for Dr. Rush Snyder. I was presetn for the full encounter and formulated the plan with Mrs Johnson. Agree with above. Dr. Rush Snyder. Attending Drone Pilot. [facility]
[2017-09-22] MEDS: CEFAZOLIN/Water 2 GM/20 ML SYRINGE SLOW IVP SCH ×3 (05:33→21:47)
[2017-09-22] MEDS: HYDROcodone/Acetaminophen 5/325 mg Tablet PO PRN ×4 (05:33→21:49)
--- NOTE | 2017-09-22 07:15 | EKG ---
Test Reason : STAT Blood Pressure : / mmHG Vent. Rate : 131 BPM Atrial Rate : 131 BPM P-R Int : 000 ms QRS Dur : 144 ms QT Int : 380 ms P-R-T Axes : 000 270 053 degrees QTc Int : 561 ms Wide QRS tachycardia with Fusion complexes Right bundle branch block Left anterior fascicular block Bifascicular block Abnormal ECG When compared with ECG of 22-JUL-2017 16:59, Wide QRS tachycardia has replaced Sinus rhythm Vent. rate has increased BY 84 BPM Confirmed by TAMICA RIVERA, . SGreyson ([id number]) on 09/22/2017 7:15:24 AM Referred By: PERLA Confirmed By:DR. Kiet DAVEY MD
[2017-09-22] MEDS: Aspirin 81 mg Enteric Coated Tablet PO SCH (08:12)
[2017-09-22] MEDS: Famotidine 20 MG TAB PO SCH ×2 (08:12→21:48)
[2017-09-22] MEDS: Losartan 25 MG TAB PO SCH (08:12)
[2017-09-22] MEDS: Docusate 100 MG CAP PO SCH ×2 (08:12→21:48)
[2017-09-22] MEDS: Clopidogrel Bisulfate 75 MG TAB PO SCH (08:12)
[2017-09-22] MEDS: Magnesium Oxide 400 MG TAB PO SCH (08:13)
[2017-09-22] MEDS: Enoxaparin Sodium 30 MG/0.3 ML SYRINGE SC SCH (08:13)
[2017-09-22] MEDS: Acetaminophen 325 MG TAB PO PRN (08:13)
[2017-09-22] MEDS: NIFEdipine XL 60 MG TAB PO SCH (08:13)
--- NOTE | 2017-09-22 18:49 | PDOC.CTH ---
Cardiology Progress Note - Subjective She is doing better., Her atrial tach is better with BB. - Objective Vital Signs Temp Pulse Pulse Resp BP BP BP 09/22/17 15:34 98.8 F 60 16 149/69 H 09/22/17 14:16 63 176/74 H 09/22/17 11:08 98.4 F 62 16 129/61 09/22/17 08:13 75 181/75 H 09/22/17 08:00 100.5 F H 75 18 181/75 H Pulse Ox 09/22/17 15:34 96 09/22/17 14:16 09/22/17 11:08 97 09/22/17 08:13 09/22/17 08:00 94 L Admit Weight 149 lb Weight 140 lb 8 oz 09/21/17 09/22/17 09/23/17 06:59 06:59 06:59 Intake Total 1160 480 Balance 1160 480 - Physical Examination General/Neuro: alert & oriented x3, NAD Neck: no JVD present Lungs: unlabored respirations Heart: RRR Abdomen: NT/ND Extremities: other: (no edema) - Telemetry Telemetry Rhythm: NSR, PAC's - Labs Result Diagrams: 09/21/17 05:12 09/21/17 05:12 - Assessment/Plan 1. Atrial tachycardia, non sustained. 2. s/p amputatoin, 3. PVD PLAN: - Continue increased BB dose. Her episodes of A tach have improved significantly with this change. - Asymptomatic from arrhythmia. - Not requiring anticoagulation, no afib seen.
[2017-09-23] MEDS: HYDROcodone/Acetaminophen 5/325 mg Tablet PO PRN ×3 (04:02→18:56)
[2017-09-23] MEDS: CEFAZOLIN/Water 2 GM/20 ML SYRINGE SLOW IVP SCH ×3 (05:34→21:29)
[2017-09-23] MEDS: Aspirin 81 mg Enteric Coated Tablet PO SCH (10:21)
[2017-09-23] MEDS: Clopidogrel Bisulfate 75 MG TAB PO SCH (10:21)
[2017-09-23] MEDS: Magnesium Oxide 400 MG TAB PO SCH (10:22)
[2017-09-23] MEDS: NIFEdipine XL 60 MG TAB PO SCH (10:22)
[2017-09-23] MEDS: Docusate 100 MG CAP PO SCH ×2 (10:22→21:29)
[2017-09-23] MEDS: Famotidine 20 MG TAB PO SCH ×2 (10:22→21:29)
[2017-09-23] MEDS: Losartan 25 MG TAB PO SCH (10:22)
[2017-09-23] MEDS: Enoxaparin Sodium 30 MG/0.3 ML SYRINGE SC SCH (10:22)
--- NOTE | 2017-09-23 18:51 | PDOC.CTH ---
Cardiology Progress Note - Subjective No new issues. She has remained in sinus. - Objective Vital Signs Temp Pulse Resp BP BP Pulse Ox 09/23/17 12:59 99.9 F H 70 19 169/72 H 96 09/23/17 10:22 74 166/74 H 09/23/17 08:15 99.7 F H 74 17 166/74 H 96 Admit Weight 149 lb Weight 138 lb 3.2 oz 09/22/17 09/23/17 09/24/17 06:59 06:59 06:59 Intake Total 1160 720 Balance 1160 720 - Physical Examination General/Neuro: alert & oriented x3, NAD Neck: no JVD present Lungs: unlabored respirations Heart: RRR Abdomen: NT/ND Extremities: other: (no edema) - Telemetry Telemetry Rhythm: NSR - Labs Result Diagrams: 09/21/17 05:12 09/21/17 05:12 - Assessment/Plan 1. Atrial tachycardia, non sustained. 2. s/p amputatoin, 3. PVD PLAN: - Continue increased BB dose. Her episodes of A tach have improved significantly with this change. - Asymptomatic from arrhythmia. - Not requiring anticoagulation, no afib seen.
[2017-09-24] MEDS: HYDROcodone/Acetaminophen 5/325 mg Tablet PO PRN ×2 (02:45→15:58)
[2017-09-24] MEDS: CEFAZOLIN/Water 2 GM/20 ML SYRINGE SLOW IVP SCH ×3 (05:40→22:45)
[2017-09-24] MEDS: Clopidogrel Bisulfate 75 MG TAB PO SCH (09:31)
[2017-09-24] MEDS: Aspirin 81 mg Enteric Coated Tablet PO SCH (09:31)
[2017-09-24] MEDS: Enoxaparin Sodium 30 MG/0.3 ML SYRINGE SC SCH (09:32)
[2017-09-24] MEDS: Docusate 100 MG CAP PO SCH ×2 (09:32→22:45)
[2017-09-24] MEDS: Famotidine 20 MG TAB PO SCH ×2 (09:33→22:44)
[2017-09-24] MEDS: Losartan 25 MG TAB PO SCH (09:33)
[2017-09-24] MEDS: NIFEdipine XL 60 MG TAB PO SCH (09:34)
[2017-09-24] MEDS: Magnesium Oxide 400 MG TAB PO SCH (09:34)
--- NOTE | 2017-09-24 16:44 | PRG ---
DATE OF SERVICE: 09/24/2017 SUBJECTIVE: Ms. Vincent seems to be did well over the weekend. She remains in sinus rhythm with occasional PVCs, but no sustained atrial tachyarrhythmia runs. OBJECTIVE: VITAL SIGNS: Blood pressure currently 178/84, heart rate 69, respirations 18, temperature 99.1 degrees Fahrenheit. GENERAL: Alert and oriented woman, in no apparent distress. NECK: Supple. Jugular veins not distended. CHEST: Coarse, no crackles. CARDIOVASCULAR: Heart sounds are regular to rate and rhythm. There is a 2/6 systolic ejection murmur heard. No gallop is appreciated. ABDOMEN: Benign. Bowel sounds positive. EXTREMITIES: Lower extremities without edema, clubbing or cyanosis. LABORATORY DATA: No recent lab work. Telemetry strips reviewed revealing sinus rhythm, occasional PVCs. ASSESSMENT AND PLAN: Mr. Vincent is a pleasant 77-year-old female with prior history of vasculopathy and lower extremity amputations, who also has a normal LVEF, mild MR, moderate AR, moderate aortic stenosis. Mild tricuspid regurgitation. She is here with status post left foot amputation. She developed atrial tachyarrhythmias, which though was responding to beta kin therapy. At this point, she is doing fair. His blood pressure is still high. Atrial arrhythmias resolved with beta kin therapy. I think it is reasonable to continue medical management on this lady. the nonsustained atrial tachyarrhythmias now not seem to be bothering her and well suppressed with the increased BB therapy.. I am happy to see her back as an outpatient if that is felt necessary. AIME
--- NOTE | 2017-09-24 16:51 | PDOC.CTH ---
Cardiology Progress Note - Subjective She is doing well. Tele monitoring has been stable in the last 48 hrs. - Objective Vital Signs Temp Pulse Pulse Pulse Resp BP BP 09/24/17 09:47 71 75 173/76 H 09/24/17 09:34 69 178/84 H 09/24/17 08:00 99.1 F 69 18 BP BP Pulse Ox 09/24/17 09:47 171/75 H 09/24/17 09:34 09/24/17 08:00 178/74 H 60 L Admit Weight 149 lb Weight 140 lb 12.8 oz 09/23/17 09/24/17 09/25/17 06:59 06:59 06:59 Intake Total 720 1220 Balance 720 1220 - Physical Examination General/Neuro: alert & oriented x3, NAD Neck: no JVD present Lungs: unlabored respirations Heart: RRR Abdomen: NT/ND Extremities: other: (no edema.) - Telemetry Telemetry Rhythm: NSR - Labs Result Diagrams: 09/21/17 05:12 09/21/17 05:12 - Assessment/Plan 1. Atrial tachycardia, non sustained. 2. s/p amputation, 3. PVD PLAN: - Continue increased BB dose. - Asymptomatic from arrhythmia. - Not requiring anticoagulation, no afib seen. - Will sign off. Please call with any questions.
[2017-09-24] MEDS: Acetaminophen 325 MG TAB PO PRN (22:45)
[2017-09-25] MEDS: CEFAZOLIN/Water 2 GM/20 ML SYRINGE SLOW IVP SCH ×2 (06:27→14:58)
[2017-09-25] MEDS: NIFEdipine XL 60 MG TAB PO SCH (08:31)
[2017-09-25] MEDS: Losartan 25 MG TAB PO SCH (08:32)
[2017-09-25] MEDS: Famotidine 20 MG TAB PO SCH (08:32)
[2017-09-25] MEDS: Magnesium Oxide 400 MG TAB PO SCH (08:32)
[2017-09-25] MEDS: Clopidogrel Bisulfate 75 MG TAB PO SCH (08:33)
[2017-09-25] MEDS: Enoxaparin Sodium 30 MG/0.3 ML SYRINGE SC SCH (08:33)
[2017-09-25] MEDS: Aspirin 81 mg Enteric Coated Tablet PO SCH (08:33)
[2017-09-25] MEDS: Docusate 100 MG CAP PO SCH (08:33)
[2017-09-25] MEDS: cloNIDine 0.1 MG TAB PO PRN (12:07)
[2017-09-25 14:51] VITALS: BP 153/72; TEMP 98.4
--- NOTE | 2017-09-25 15:08 | DIS ---
HOSPITAL COURSE: The patient was admitted for elective left below the knee amputation, which was car ried out on the day of admission. Her postoperative course was initially significant for an atrial t achycardia, for which she was seen by Dr. Kelly and Dr. Snyder and beta blockers were recommended. Dayami mayo then did well with a wound healing nicely and discharge was delayed due to awaiting placement. The patient will be transferred to the rehab unit and we will see how she progresses there.
== END 2017-09-25 18:50 | DRG 240 ==
LOC: SURG A 10:38 → SURG B 15:24 → 2SW 09-21 09:15 → 2NO 09-21 14:13
PROVIDERS: ADMIT Thoracic Surgery (Cardiothoracic Vascular Surgery); ATTEND Thoracic Surgery (Cardiothoracic Vascular Surgery)
PROC: 0Y6J0Z1 Detachment at Left Lower Leg, High, Open Approach (ICD-10-PCS; principal; 2017-09-20)
DX: I70.245 Atherosclerosis of native arteries of left leg with ulceration of other part of foot (principal); I47.1 Supraventricular tachycardia; I08.3 Combined rheumatic disorders of mitral, aortic and tricuspid valves; I35.0 Nonrheumatic aortic (valve) stenosis; D64.9 Anemia, unspecified; I73.9 Peripheral vascular disease, unspecified; T44.7X5A Adverse effect of beta-adrenoreceptor antagonists, initial encounter; I10 Essential (primary) hypertension; Z87.891 Personal history of nicotine dependence
CPT/HCPCS: 36415; 71045; 80048; 83735; 85025; 86850; 86900; 86901; 88307; 88311; 93005; 93010; 93306; G8981-GP-CM; G8982-GP-CJ; G8987-GO-CM; G8988-GO-CK; J0360; J1650; J2001; J2250; J2405; J2704; J3010

== ENCOUNTER 2017-10-28 15:50 | Inpatient (IN) | payer MEDICARE, MEDICAID ==
[~2017-10-28 15:50] MED LIST changes: -Glycopyrrolate 0.2 MG/ML 5 ML SYRINGE ONE; +ISOVUE-370 76%-LOCM 1 ML ONE; -Labetalol 100 MG/20 ML MDV ONE; -Lidocaine 1% PF 5 ML VIAL ONE; -Ondansetron HCl/PF 4 MG/2 ML Vial ONE; -PHENYLEPHRINE-NS 100 MCG/ML 10 ML SYRINGE ONE; -Propofol 200 MG/20 ML VIAL ONE
--- NOTE | 2017-10-28 17:13 | RAD ---
PORTABLE CHEST: Date: 10/28/17 HISTORY: Mental status change. FINDINGS: Lung mcrae are clear. Heart and mediastinum unremarkable with mild aortic calcification noted. No ev idence of vascular congestion or edema. No infiltrate or other acute process. IMPRESSION: No acute findings. POS: [facility]
--- NOTE | 2017-10-28 17:23 | CT ---
CT HEAD WITHOUT CONTRAST: Date: 10/28/17 Multiple axial tomograms obtained through the head without IV enhancement. HISTORY: Stroke alert. Slurred speech and mental status change. No comparison exam available. FINDINGS: There is encephalomalacia involving the posterior left parietal lobe in a parasagittal location indic ating an old infarct. Ventricles have normal size and position. Mild to moderate chronic ischemic whi te matter change. Chronic ischemic change in the region of the caudate head on the left with possible old lacunar infarct. There is a focal lucency in the brain stem at the level of the vasile to the left of midline suggesting old brain stem infarct. No evidence of mass or hemorrhage. No acute cortical infarct identified. IMPRESSION: 1. Focal area of encephalomalacia in the posterior left parietal lobe in the parasagittal region sug gests old infarct. 2. Chronic ischemic changes are seen with evidence of old lacunar infarcts seen in the region of the caudate on the left and the thalamus on the left. The thalamus infarct could potentially be subacute and recommend MRI to assess restricted diffusion in this region. 3. 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 MRI could also assess possible subacute infarct at this location. Findings discussed with Dr. Dailey at approximately 1641 hours. CODE CR. POS: [facility]
[2017-10-28 17:31] LABS: #Basophils 0.1 thou/uL (0.0-0.2); #Eosinphils 0.3 thou/uL (0.0-0.7); #Lymphocytes 2.4 thou/uL (1.20-3.40); #Monocytes 0.7 thou/uL (0.11-0.59); #Neutrophils 4.1 thou/uL (1.40-6.50); %Basophils 1.2 % (0.0-1.0); %Eosinophils 3.5 % (0.0-10.0); %Lymphocytes 32.2 % (21.0-51.0); %Monocytes 8.7 % (0.0-10.0); %Neutrophils 54.5 % (42.0-75.0); Hemoglobin 11.2 g/dL (12.0-16.0); Mean Corpuscular Hemoglobin 31.6 pg (27.0-31.0); Mean Corpuscular Volume 98.7 fl (81.0-99.0); Platelet Count 503 thou/uL (130-400); RBC Distribution Width 14.8 % (11.5-14.5); Red Blood Cell (RBC) Count 3.53 mill/uL (4.20-5.40); White Blood Cell (WBC) Count 7.6 thou/uL (4.8-10.8)
[2017-10-28] MEDS ORDERED: Naloxone HCl 0.4 mg/ml Vial ONE (17:31)
[2017-10-28] MEDS ORDERED: Succinylcholine Chloride 20 MG/ML 10 ml SYRINGE FS ONE (17:37)
[2017-10-28] MEDS ORDERED: Midazolam HCl 5 mg/ml Vial ONE (17:46)
[2017-10-28 17:51] LABS: ALT (SGPT) Less than 7 U/L (8-55); AST (SGOT) 14 U/L (5-34); Alkaline Phosphatase 82 U/L (40-150); Anion Gap 12 mmol/L (10-20); BUN (Urea Nitrogen) 16 mg/dL (9.8-20.1); Bilirubin, Total 0.3 mg/dL (0.2-1.2); Calc. Creatinine Clearance 0 mL/min (70-130); Calcium 9.8 mg/dL (7.8-10.44); Carbon Dioxide 22 mmol/L (23-31); Chloride 103 mmol/L (98-107); Estimated GFR-MDRD Greater than 90; Globulin 4.6 g/dL (2.4-3.5); Glucose 95 mg/dL (83-110); Lipase 16 U/L (8-78); Protein, Total 7.6 g/dL (6.0-8.3); Sodium 133 mmol/L (136-145)
[2017-10-28 17:54] LABS: CKMB 1.1 ng/mL (0-6.6); Troponin I 0.049 ng/mL (< 0.028)
[2017-10-28] MEDS ORDERED: Propofol 1,000 MG/100 ML VIAL IV ONE (17:54)
[2017-10-28 17:55] LABS: Acetaminophen Less than 6.0 mcg/mL (10.0-30.0); Alcohol Less than 10 mg/dL (Less than 10); Magnesium 1.6 mg/dL (1.6-2.6); Salicylate Less than 8.0 mg/dL (15.0-30.0)
--- NOTE | 2017-10-28 18:20 | RAD ---
PORTABLE SUPINE CHEST: Date: 10/28/17 HISTORY: Respiratory distress. Comparison made to film from earlier today at 1607 hours. FINDINGS: ET tube has been placed. The tip is well above dylan and appears adequately positioned. The lung fie lds are clear and unchanged. IMPRESSION: No acute chest finding or interval change. ET tube appears in adequate position. POS: [facility]
[2017-10-28 19:03] LABS: INR-International Normal Ratio 1.1; Prothrombin Time 14.3 SEC (12.0-14.7)
[2017-10-28 19:08] LABS: PTT 31.7 SEC (22.9-36.1)
--- NOTE | 2017-10-28 19:29 | RAD ---
SUPINE ABDOMEN: Date: 10/28/17 HISTORY: Assess NG tube placement. FINDINGS/IMPRESSION: NG tube is in place. Tip passes through the EG junction and overlies the left upper quadrant. Bowel g as pattern unremarkable. There is abnormal gas density overlying both upper quadrants peripherally. I cannot exclude free intr aperitoneal air on this supine projection. If there is concern, recommend upright study. POS: [facility]
[2017-10-28 19:33] LABS: Bilirubin Negative (Negative); Blood, Urine Negative (Negative); Clarity CLOUDY (Clear); Glucose, Urine (Dipstick) Negative (Negative); Leukocyte Small (Negative); Nitrite Positive (Negative); Protein, Urine (Dipstick) Negative (Neg-Trace); Specific Gravity, Urine 1.013 (1.002-1.036); Urobilinogen 0.2 mg/dL (0.2-1.0)
[2017-10-28 19:36] LABS: Bacteria/HPF 2+ HPF (None Seen); Hyaline Casts/LPF 0-3 HYALINE CAST LPF (0-3 Hyaline); Pathc Cast-AUWi Flag 0.27 (0-2.49); RBC/HPF None Seen HPF (0-3); Squamous Epithelial 0-3 HPF (0-3)
[2017-10-28 19:42] LABS: Amphetamine Not Detected (NotDetected); Barbiturates Screen Not Detected (NotDetected); Benzodiazepine Screen Not Detected (NotDetected); Cocaine Metabolite Screen Not Detected (NotDetected); Medtox Control Line Valid? VALID (VALID); Medtox Reader # READER 1; Methadone Not Detected (NotDetected); Methamphetamine Not Detected (NotDetected); Opiate Screen Detected (NotDetected); Oxycodone Screen Not Detected (NotDetected); Phencyclidine (PCP) Not Detected (NotDetected); THC/Cannabinoid Screen Not Detected (NotDetected); Tricyclic Screen Not Detected (NotDetected)
[2017-10-28 19:59] LABS: Glucose Accucheck Confirmation 98 mg/dl (83-110)
[2017-10-28 19:59] LABS: O2 Tension (PaO2) 566.4 mmHg (80.0-100.0); pH, Arterial 7.51 (7.35-7.45)
[2017-10-28 20:00] LABS: Analyzer IN Cardio ER; Base Excess (BEa) -2.1 mEq/L (0 (+/-) 2.5); CO2 Tension 25.6 mmHg (35.0-45.0); Calcium, Ionized 1.3 mmol/L (1.12-1.30); Hematocrit-ABG 31.4 % (36.0-47.0); Hemoglobin (Hb) 9.7 g/dL (12.0-16.0); Puncture Site RRA
[2017-10-28] MEDS ORDERED: Scopolamine 1.5 mg/72 hour Patch TOP SCH (20:45)
[2017-10-28] MEDS ORDERED: Piperacillin/Tazobactam 3.375 GM in Sodium Chloride 0.9% 100 ML IVPB SCH (20:45)
[2017-10-28 21:05] LABS: Troponin I 0.039 ng/mL (< 0.028)
--- NOTE | 2017-10-28 22:30 | CT ---
CT ABDOMEN AND PELVIS WITH IV CONTRAST: Date: 10/28/17 Multiple axial tomograms obtained through abdomen and pelvis with IV enhancement. HISTORY: Abdominal pain. FINDINGS: Lung bases are clear. The liver, spleen, and pancreas appear unremarkable. There is a NG tube in place with tip in the uppe r gastric fundus. Adrenal glands are unremarkable. Kidneys are unremarkable. Urinary bladder is mildl y distended. Tiny cortical cyst in the posterior left kidney superiorly measures approximately 6.0 mm . Also, a tiny 6.0 mm cyst in the posterior right renal cortex. Small bowel loops appear normal. The colon is abnormal. The right colon, transverse colon, and upper left colon particularly shows kim dence of diffuse mural thickening. The distal left colon and sigmoid colon is decompressed and not we ll evaluated. The rectum is abnormal with mural thickening and mural edema. Perirectal edema and inflammatory lawrence e is seen. There is stool in the rectum. Patient appears to be post hysterectomy. Aorta is calcified, but normal caliber. The L3 vertebra is abnormal. There is coarse trabeculation in the vertebral marrow suggesting hemangi baldo, however, there is abnormal sclerosis involving the pedicles and facets, as well as the transvers e process at this level. The other visualized vertebra appear unremarkable. No other osseous lesion. IMPRESSION: 1. The colon is abnormal with abnormal mural thickening involving right colon, transverse colon, and upper left colon. The rectum and rectosigmoid area is also abnormal with mural thickening and perire ctal edema and inflammation. Recommend GI consultation. Colonoscopy is recommended to further evaluat e the colon mucosa. 2. The L3 vertebra is abnormal. The central vertebra shows trabeculation consistent with hemangioma; however, the vertebral cortex and posterior elements show abnormal sclerosis and hyperostosis. This has an overall benign appearance. Considerations include Pagets Disease and\or Fibrous Dysplasia. Met astasis is not excluded but less lilkely. No other osseous abnormality identified. POS: [facility]
[2017-10-28] MEDS ORDERED: fentaNYL Citrate/PF 2,000 MCG in Sodium Chloride 0.9% 60 ML IV SCH (22:42)
[2017-10-28] MEDS ORDERED: Lorazepam 2 MG/ML VIAL SLOW IVP PRN (22:42)
[2017-10-28] MEDS ORDERED: DISCONTINUE PREVIOUS NARCOTIC PAIN MEDICATIONS AND BENZODIAZEPINES FS SCH (22:42)
[2017-10-28] MEDS ORDERED: Morphine 2 MG/ML SYRINGE SLOW IVP PRN (22:42)
[2017-10-28] MEDS ORDERED: Propofol 1,000 MG/100 ML VIAL IV PRN (22:42)
[2017-10-28] MEDS ORDERED: Fentanyl BOLUS 250 ML IVPB PRN (22:42)
[2017-10-28] MEDS ORDERED: Dextrose 5 %-0.45 % NaCl 1,000 ML IV SCH (22:45)
[2017-10-29 00:11] LABS: Troponin I 0.046 ng/mL (< 0.028)
[2017-10-29] MEDS ORDERED: hydrALAZINE 20 MG/ML VIAL SLOW IVP PRN (01:28)
--- NOTE | 2017-10-29 02:47 | HP ---
PRESENTING COMPLAINT: Slurred speech. HISTORY OF PRESENT ILLNESS: Patient with a past medical history of hypertension and recent left lower extremity kolir-[id number]-[id number] amputation, who was brought to the emergency room by family on account of slurred speech. They stated that she had been acting slow and has difficulty speaking. Last normal time was unclear, but reportedly around 12:30 in the afternoon on Sunday, no other complaints from the patient. While in the emergency room, patient went apneic and ABG was counseling, and she was eventually intubated and admitted to the intensive care unit. History limited due to patient being intubated and family not available to give further history. PAST MEDICAL HISTORY: Hypertension, CVA. PAST SURGICAL HISTORY: Herniorrhaphy, left lower extremity [id number] amputation. FAMILY HISTORY: Reviewed and noncontributory. SOCIAL HISTORY: She is a smoker and drinks alcohol occasionally. ALLERGIES: None. REVIEW OF SYSTEMS: Unable to obtain due to patient being intubated. PHYSICAL EXAMINATION: GENERAL: Intubated, sedated, not in acute distress. HEENT: PERRLA. Moist mucous membranes. Normocephalic, atraumatic. RESPIRATORY: Vesicular breath sounds bilaterally. No wheezes or rales. CARDIOVASCULAR: Positive systolic murmur. Regular rate and rhythm. No rubs or gallops. ABDOMEN: Soft, nontender, nondistended. Bowel sounds positive. No organomegaly. SKIN: Warm and well perfused. MUSCULOSKELETAL: Left above-ankle amputation. NEUROLOGIC: Unable to cooperate with the examiner as she is intubated and sedated. LABORATORY DATA: WBC 7.6, hemoglobin 11.2, platelets 503. Sodium 133, potassium 4, chloride 103, carbon dioxide 22, anion gap 12, BUN 16, creatinine 0.74, glucose 104. Troponin 0.049. TSH 0.70. ABG: pH 7.51, pCO2 25, pO2 566, this was immediately after intubation, I connected to mechanical ventilation. IMAGING: Abdomen/pelvis CT: With abnormal mural thickening involving right colon, transverse colon, and left upper colon. Recommend GI consultation for possible colonoscopy to further evaluate the colonic mucosa. Chest x-ray, no acute findings. ET tube in adequate position. Brain CT, focal area of encephalomalacia in the posterior left parietal lobe in the parasagittal region suggesting old infarct, chronic ischemic changes with evidence of old lacunar infarcts, focal lucency in the brain scan were consistent with old brainstem infarct. ASSESSMENT AND PLAN: 1. Acute respiratory failure. She has been intubated and sedated. We will get pulmonary consult. Daily ABGs and chest x-rays. Will also maintain VAP bundle. Follow up blood culture and continue broad spectrum antibiotics. Trend troponin. 2. Possible ischemic cerebrovascular accident and patient presents with slurred speech with no clear acute findings on CT brain. We will obtain MRI brain once the patient is stable and get Neurology consult. 3. Hypertension. Patient's blood pressure is around 188/66 with a map of 80, will place on p.r.n. labetalol and hydralazine intravenously. MTDD
[2017-10-29] MEDS: Piperacillin/Tazobactam 3.375 GM in Sodium Chloride 0.9% 100 ML IVPB SCH ×4 (03:12→20:50)
[2017-10-29] MEDS: Vancomycin HCl 750 MG in Sodium Chloride 0.9% 250 ML 250 ML IVPB SCH ×2 (04:14→18:28)
[2017-10-29 04:21] LABS: Lactic Acid 2.6 mmol/L (0.5-2.2)
[2017-10-29 04:26] LABS: Anion Gap 14 mmol/L (10-20); BUN (Urea Nitrogen) 11 mg/dL (9.8-20.1); Calc. Creatinine Clearance 70 mL/min (70-130); Calcium 9.5 mg/dL (7.8-10.44); Carbon Dioxide 19 mmol/L (23-31); Cardiac Risk 5.4 (Less than 4.5); Chloride 109 mmol/L (98-107); Cholesterol 157 mg/dl (< 200 Desired); Estimated GFR-MDRD Greater than 90; Glucose 137 mg/dL (83-110); HDL Cholesterol 29 mg/dL (>60 Neg Risk); LDL Cholesterol, Calculated 96 mg/dL; Potassium 3.8 mmol/L (3.5-5.1); Sodium 138 mmol/L (136-145); Triglycerides 158 mg/dL (Less than 150)
[2017-10-29 04:40] LABS: #Basophils 0.1 thou/uL (0.0-0.2); #Eosinphils 0.1 thou/uL (0.0-0.7); #Lymphocytes 1.9 thou/uL (1.20-3.40); #Monocytes 0.9 thou/uL (0.11-0.59); #Neutrophils 8.4 thou/uL (1.40-6.50); %Basophils 0.5 % (0.0-1.0); %Eosinophils 1.1 % (0.0-10.0); %Lymphocytes 16.3 % (21.0-51.0); %Monocytes 7.8 % (0.0-10.0); %Neutrophils 74.3 % (42.0-75.0); Hemoglobin 10.8 g/dL (12.0-16.0); Mean Corpuscular HGB CONC 31.5 g/dL (32.0-36.0); Mean Corpuscular Volume 98.4 fl (81.0-99.0); Mean Platelet Volume 6.2 fL (7.4-10.4); Platelet Count 493 thou/uL (130-400); RBC Distribution Width 14.8 % (11.5-14.5); Red Blood Cell (RBC) Count 3.49 mill/uL (4.20-5.40); White Blood Cell (WBC) Count 11.3 thou/uL (4.8-10.8)
[2017-10-29 06:27] LABS: Troponin I 0.047 ng/mL (< 0.028)
[2017-10-29 08:24] LABS: CO2 Tension 35.8 mmHg (35.0-45.0); pH, Arterial 7.41 (7.35-7.45)
[2017-10-29 08:25] LABS: Analyzer IN Cardio ER; Base Excess (BEa) -2.3 mEq/L (0 (+/-) 2.5); Calcium, Ionized 1.3 mmol/L (1.12-1.30); Hematocrit-ABG 33.2 % (36.0-47.0); Hemoglobin (Hb) 10.2 g/dL (12.0-16.0); O2 Tension (PaO2) 181.1 mmHg (80.0-100.0); Puncture Site RBA
[2017-10-29] MEDS ORDERED: Prevnar 13-Val Conj/PF 0.5 ML SYRINGE IM ONE (09:00)
[2017-10-29] MEDS ORDERED: FLU VACC TS2017-18 (>65YR) 0.5 ML SYRINGE IM ONE (09:00)
--- NOTE | 2017-10-29 09:19 | RAD ---
PORTABLE AP CHEST XRAY: DATE: 10/29/17. History Intubated, line placement. COMPARISON: 10/28/17. FINDINGS: Endotracheal tube remains in place and unchanged in position. There has been interval placement of a nasogastric tube with tip overlying the expected location of the gastric fundus. Cardiac silhouette and pulmonary vasculature are within normal limits. Lungs remain clear. Vascular calcification in thoracic aorta. There has been no other interval change from prior exam. IMPRESSION: 1. No acute cardiopulmonary process. 2. Interval placement of nasogastric tube. Endotracheal tube remains unchanged in position. POS: [facility]
--- NOTE | 2017-10-29 10:01 | PDOC.PN ---
- Subjective Encounter Start Date: 10/29/17 Encounter Start Time: 09:59 Subjective: no purposeful responce - Objective MAR Reviewed: Yes Vital Signs & Weight: Vital Signs (12 hours) Temp Pulse Resp Pulse Ox 10/29/17 08:08 84 10/29/17 06:00 12 10/29/17 04:00 98.4 F 12 10/29/17 02:18 74 10/29/17 00:50 75 10/29/17 00:00 12 10/28/17 23:00 98.2 F 75 12 98 Weight Weight 117 lb 15.157 oz Most Recent Monitor Data Heart Rate from ECG 82 NIBP 182/58 NIBP BP-Mean 133 Respiration from ECG 18 SpO2 94 I&O: 10/28/17 10/29/17 10/30/17 06:59 06:59 06:59 Intake Total 914 Output Total 875 Balance 39 Result Diagrams: 10/29/17 03:34 10/29/17 03:34 Radiology Reviewed by me: Yes (CXR-ET , NGT in place, no infiltrate) Phys Exam - Physical Examination Neck: no JVD Respiratory: clear to auscultation bilateral Cardiovascular: RRR $/^ holosys murmur Gastrointestinal: positive bowel sounds Musculoskeletal: no edema, edema present post L above ankle amp Dx/Plan (1) Acute respiratory failure with hypoxia Code(s): J96.01 - ACUTE RESPIRATORY FAILURE WITH HYPOXIA Status: Acute (2) Encephalopathy Code(s): G93.40 - ENCEPHALOPATHY, UNSPECIFIED Status: Acute (3) HTN (hypertension) Code(s): I10 - ESSENTIAL (PRIMARY) HYPERTENSION Status: Chronic Qualifiers: Hypertension type: essential hypertension Qualified Code(s): I10 - Essential (primary) hypertension (4) Troponin level elevated Code(s): R74.8 - ABNORMAL LEVELS OF OTHER SERUM ENZYMES Status: Acute (5) Tobacco abuse Code(s): Z72.0 - TOBACCO USE Status: Acute - Plan vent support per pulmonology -: cont iv antibx pending C&S reports -: parenteral BP control * .
--- NOTE | 2017-10-29 13:26 | CON ---
DATE OF CONSULTATION: 10/29/2017 SERVICE: Pulmonary Medicine. REASON FOR CONSULTATION: Intubated patient. HISTORY OF PRESENT ILLNESS: Patient is a 77-year-old -[place] female with past medical histo ry significant for polysubstance drug abuse. Apparently, she was in her usual state of health until the day of admission. She started having some slurred speech associated with high blood pressure. S he was brought to the emergency department and started acting very slowly. She became more apneic in the emergency department. She was subsequently intubated to protect her airway and to provide adequ ate ventilation. She is currently intubated and sedated and cannot really provide any additional desiree ments of the history. PAST MEDICAL HISTORY: 1. Hypertension. 2. History of cerebrovascular accident. PAST SURGICAL HISTORY: 1. Herniorrhaphy. 2. Left lower extremity below-knee amputation. FAMILY HISTORY: Noncontributory. SOCIAL HISTORY: Negative for tobacco or alcohol. There are reports that she perhaps uses cocaine st ill. ALLERGIES: No known drug allergies. MEDICATIONS: List of her inpatient medications were reviewed. No specific updates were made. REVIEW OF SYSTEMS: Just cannot be obtained, as the patient is currently in intubated state. PHYSICAL EXAMINATION: VITAL SIGNS: Afebrile, pulse 104, blood pressure 166/60, respirations 23, saturation 96% on 21% FiO2 and a PEEP of 5. HEENT: Normocephalic, atraumatic. Sclerae are white. Conjunctivae pink. Oral and nasal mucosa is moist without lesions. LUNGS: Decent air entry. There is no prolonged expiratory phase or wheezing appreciated. HEART: Normal rate, regular. ABDOMEN: Soft, nontender, nondistended. Bowel sounds are positive. MUSCULOSKELETAL: No cyanosis or clubbing. There is no pitting in the bilateral lower extremities. The left lower extremity is surgically absent below the knee. NEUROLOGIC: Grossly nonfocal. The patient is able to follow all commands that I gave her. She move s bilateral upper extremities to command as well as the right lower extremity, and left stump. Her p upils are equal and respond normally to light. She is overbreathing the ventilator and has an excell ent cough with deep suctioning. LABORATORY DATA: WBC 11.3, hemoglobin 10.8, platelets 493,000. INR 1.1. PH 7.41, pCO2 of 35, pO2 o f 181 on 40% FiO2 at that time. Basic metabolic profile is completely unremarkable. Troponin is sta ble at 0.047. Lactate 2.6 and roughly stable. BNP 136.8. TSH 0.7. Urinalysis is essentially unrem arkable except for positive nitrites and leukocyte esterase. Urine drug screen is positive for opiat es, but negative for salicylates, acetaminophen, or alcohol. Blood cultures x2 are unremarkable. IMAGIN. CT of the brain demonstrates focal areas of encephalomalacia in the posterior left parietal lobe in the parasagittal region suggestive of old infarct. There are chronic ischemic changes seen with e vidence of old lacunar infarcts seen in the region of the caudate on the left and the thalamus on the left. The thalamus infarct could possibly be subacute and an MRI was suggested. There was focal danilo cency in the brainstem consistent with an old brainstem infarct. Nothing absolutely acute is identif ied otherwise. 2. Chest x-ray demonstrates no acute findings. Endotracheal tube is in good position. 3. CT of the abdomen and pelvis demonstrates abnormal mural thickening of the colon, which is essent ially throughout the entire colon. The L3 vertebra is also abnormal. The central vertebra shows tra beculation consistent with hemangioma. Otherwise, no acute findings are present. ASSESSMENT: 1. Respiratory failure. 2. Metabolic encephalopathy. 3. Cerebrovascular accident, possible. 4. Hypertension. PLAN: We will give the patient a good long sedation holiday. If she wakes up appropriate, we will g laxmi her spontaneous breathing trial and extubation will be considered. If she has any focal neurolog ic deficit once we wake her up, we will proceed with MRI. Otherwise, we can likely discontinue the s emerson. She has an NG tube in place, so if the tube comes out, we will leave the NG tube then until we can clear her swallow. We will mobilize her and give her diet if she is neurologically intact. Pulning quinones Critical Care will continue to follow while the patient remains in the ICU. It is not clear to me what has occurred here, but my suspicion is that we are dealing with a metabolic derangement, pos sibly opiate-induced respiratory event. Critical care time: 30 minutes.
--- NOTE | 2017-10-29 15:51 | MRI ---
MRI BRAIN WITHOUT CONTRAST: History: Slurred speech, mental status change. Technique: Noncontrast enhanced MRI images of the brain obtained. Multiplanar, multisequence images o btained. FINDINGS: Images demonstrate areas of encephalomalacia and gliosis involving the left parietooccipital lobe as well as a left occipital lobe. No evidence of areas of diffusion restriction is seen to suggest acute stroke. Compatibles are compatible with an old left posterior cerebral artery vascular distribution area of stroke. No other acute intracranial abnormalities seen. Motion artifact decreases the sensitivity for additional pathology. There is extensive motion artifac t on T2 and FLAIR weighted sequences. Small areas of lacunar infarction seen in the left centrum semiovale. This appears to be old. IMPRESSION: Old left centrum semiovale and areas of old stroke in the left occipital and parietooccipital lobes. POS: [facility]
--- NOTE | 2017-10-29 20:38 | CON ---
DATE OF CONSULTATION: 10/29/2017 CONSULTATING PHYSICIAN: Hospitalist service. IMPRESSION: 1. Transient encephalopathy of uncertain cause. 2. Old left parietal occipital strokes. 3. Hypertension. PLAN: EEG tomorrow. Ms. Vincent is a 77-year-old woman who came to the hospital for evaluation. Apparently, she was talk ative and appropriate before she became unresponsive and seemingly had a respiratory arrest. She had now taken out a CT scan, which showed several areas of small vessel ischemic changes of questionable age. She was intubated overnight and on propofol drip and then both of these have been discontinued . Drug screen was positive for opiates. Her metabolic studies were otherwise unremarkable. Urine w as essentially clear with only 4-6 white cells and positive nitrite. She has been awake and talking today. The family reports that her slurred speech is fairly standard for her. Otherwise, no other s eizure-like activity has been witnessed. PAST MEDICAL HISTORY: Hypertension and stroke. PAST SURGICAL HISTORY: Recent left BKA. FAMILY HISTORY: Noncontributory. SOCIAL HISTORY: Positive for tobacco and alcohol use. ALLERGIES: None reported. REVIEW OF SYSTEMS: Does not report a headache or dizziness at this point. PHYSICAL EXAMINATION: GENERAL: A thin elderly lady lying in bed quietly. VITAL SIGNS: Blood pressure 178/67, pulse 97, respirations 19, saturations 100%. HEENT: Pupils are equal. Conjunctivae are clear. Mucous brains are moist. NECK: Supple. EXTREMITIES: No cyanosis noted. NEUROLOGIC: She is fairly lethargic, but would awaken and follow simple commands. Her speech was sl urred. She seemed to have a bit of facial asymmetry with some flattening on the left. She had equal patient services assistant strength. No abnormal movements were seen. Plantar response was equivocal on the right. SUMMARY: An elderly lady with past history of stroke and sudden alteration of awareness. It is ques tionable whether she might have had a nonconvulsive seizure and no other etiology has been identified so far and see how she progresses clinically.
[2017-10-30] MEDS: Piperacillin/Tazobactam 3.375 GM in Sodium Chloride 0.9% 100 ML IVPB SCH ×3 (03:09→15:52)
[2017-10-30] MEDS: Vancomycin HCl 750 MG in Sodium Chloride 0.9% 250 ML 250 ML IVPB SCH ×2 (04:28→16:56)
[2017-10-30 04:48] LABS: #Basophils 0.1 thou/uL (0.0-0.2); #Eosinphils 0.2 thou/uL (0.0-0.7); #Lymphocytes 1.5 thou/uL (1.20-3.40); #Monocytes 1.4 thou/uL (0.11-0.59); #Neutrophils 10.4 thou/uL (1.40-6.50); %Basophils 0.6 % (0.0-1.0); %Eosinophils 1.3 % (0.0-10.0); %Lymphocytes 11.1 % (21.0-51.0); %Monocytes 10.4 % (0.0-10.0); %Neutrophils 76.6 % (42.0-75.0); Hemoglobin 9.9 g/dL (12.0-16.0); Mean Corpuscular HGB CONC 29.8 g/dL (32.0-36.0); Mean Corpuscular Hemoglobin 29.3 pg (27.0-31.0); Mean Corpuscular Volume 98.3 fl (81.0-99.0); Mean Platelet Volume 6.5 fL (7.4-10.4); Platelet Count 433 thou/uL (130-400); Red Blood Cell (RBC) Count 3.38 mill/uL (4.20-5.40); White Blood Cell (WBC) Count 13.5 thou/uL (4.8-10.8)
[2017-10-30 05:08] LABS: Anion Gap 12 mmol/L (10-20); BUN (Urea Nitrogen) 5 mg/dL (9.8-20.1); Calc. Creatinine Clearance 67 mL/min (70-130); Calcium 9.2 mg/dL (7.8-10.44); Carbon Dioxide 23 mmol/L (23-31); Chloride 108 mmol/L (98-107); Estimated GFR-MDRD Greater than 90; Glucose 113 mg/dL (83-110); Potassium 3.4 mmol/L (3.5-5.1); Sodium 140 mmol/L (136-145)
--- NOTE | 2017-10-30 09:15 | PDOC.PN ---
- Subjective Encounter Start Date: 10/30/17 Encounter Start Time: 09:13 Subjective: extubated, minimally cooperative - Objective MAR Reviewed: Yes Vital Signs & Weight: Vital Signs (12 hours) Temp 10/30/17 04:00 98.7 F 10/30/17 00:00 97.7 F Weight Admit Weight 117 lb 15.152 oz Weight 115 lb 15.41 oz Most Recent Monitor Data Heart Rate from ECG 90 NIBP 178/55 NIBP BP-Mean 126 Respiration from ECG 16 SpO2 97 I&O: 10/29/17 10/30/17 10/31/17 06:59 06:59 06:59 Intake Total 914 1867.1 Output Total 875 2127 Balance 39 -259.9 Result Diagrams: 10/30/17 03:29 10/30/17 03:29 Additional Labs: Accuchecks 10/29/17 10/29/17 10/29/17 22:07 16:12 11:08 POC Glucose 124 H 147 H 138 H Phys Exam - Physical Examination Neck: no JVD rhonchi, nonfocal Cardiovascular: RRR 3/6 holosys murmur Gastrointestinal: soft, positive bowel sounds Musculoskeletal: no edema Dx/Plan (1) Acute respiratory failure with hypoxia Code(s): J96.01 - ACUTE RESPIRATORY FAILURE WITH HYPOXIA Status: Resolved (2) Encephalopathy Code(s): G93.40 - ENCEPHALOPATHY, UNSPECIFIED Status: Acute (3) HTN (hypertension) Code(s): I10 - ESSENTIAL (PRIMARY) HYPERTENSION Status: Chronic Qualifiers: Hypertension type: essential hypertension Qualified Code(s): I10 - Essential (primary) hypertension (4) Troponin level elevated Code(s): R74.8 - ABNORMAL LEVELS OF OTHER SERUM ENZYMES Status: Acute (5) Tobacco abuse Code(s): Z72.0 - TOBACCO USE Status: Acute (6) UTI (urinary tract infection) Status: Acute - Plan swallowing trial -: descalate antibx to iv cefepime -: continue prn antihypertensives ti swallowing status determined * .
[2017-10-30] MEDS ORDERED: Propofol 1,000 MG/100 ML VIAL IV PRN (14:17)
[2017-10-30] MEDS ORDERED: Lorazepam 2 MG/ML VIAL SLOW IVP PRN (14:17)
[2017-10-30] MEDS ORDERED: Fentanyl BOLUS 250 ML IVPB PRN (14:17)
[2017-10-30] MEDS ORDERED: DISCONTINUE PREVIOUS NARCOTIC PAIN MEDICATIONS AND BENZODIAZEPINES FS SCH (14:17)
[2017-10-30] MEDS ORDERED: Morphine 2 MG/ML SYRINGE SLOW IVP PRN (14:17)
[2017-10-30] MEDS ORDERED: Protamine Sulfate 50 MG/5 ML VIAL SLOW IVP SCH (14:30)
[2017-10-30 15:25] LABS: Vancomycin, Trough 10.4 ug/mL
[2017-10-30] MEDS: Cefepime 1 GM, Admixture Fee 1 EACH in Sterile Water 10 ML SLOW IVP SCH (15:26)
--- NOTE | 2017-10-30 15:37 | EEG ---
Referring Physician: Rock BALLESTEROS EEG # [id number] TEST TYPE: ROUTINE PORTABLE REPORT: AN EEG USING THE INTERNATIONAL TEN-TWENTY SYSTEM OF ELECTRODE PLACEMENT WAS PERFORMED. The waking background is a 8-9 hertz alpha frequency. There is some minimal intermixed slowing. No epileptiform features were seen. No sleep transients were noted. Photic stimulation was unremarkable. IMPRESSION; THIS IS AN UNREMARKABLE AWAKE EEG. Photoengraving Apprentice: BRENNAN Instructor Dramatic Arts: [email or web address] SALOMON
[2017-10-30] MEDS: Vancomycin HCl 1.25 GM in Sodium Chloride 0.9% 250 ML 250 ML IVPB SCH (17:30)
[2017-10-30] MEDS ORDERED: Cefepime 1 GM in Sodium Chloride 0.9% 100 ML IVPB SCH (21:00)
[2017-10-30] MEDS ORDERED: Potassium Chloride 40 MEQ in Sodium Chloride 0.9% 250 ML 250 ML IVPB SCH (21:30)
--- NOTE | 2017-10-30 21:32 | PRG ---
DATE OF SERVICE: 10/30/2017 SERVICE: Pulmonary Medicine. INTERVAL HISTORY: The patient is doing quite well from cardiovascular and respiratory standpoint. She denies any shortness of breath or chest discomfort. She has been weaned down to room air. She tolerated extubation quite well yesterday and since then has been hemodynamically stable. Otherwise , there has been no interval change or condition. PHYSICAL EXAMINATION: VITAL SIGNS: Afebrile, pulse 99, blood pressure 151/66, respirations 16, saturation 100% on room air. GENERAL: Patient is awake, alert, in no apparent distress. LUNGS: Excellent air entry with no prolonged expiratory phase, wheezing, rhonchi or crackles. HEART: Normal rate, regular. ABDOMEN: Soft, nontender, nondistended. Bowel sounds are positive. MUSCULOSKELETAL: No cyanosis or clubbing. No pitting in the bilateral lower extremities. LABORATORY DATA: WBC 13.5, hemoglobin 9.9, platelets 433,000. Potassium 3.4. Basic metabolic profile is otherwise unremarkable. Urine culture is growing Enterobacter cloacae complex. One out of two blood cultures is growing coag negative staph. The Enterobacter is sensitive to meropenem, gentamicin, tobramycin, amikacin, and cefepime. IMAGIN. Echocardiogram demonstrates normal ejection fraction. There is diastolic dysfunction. 2. Moderate to severe aortic stenosis with reduced valve area. 3. MRI of the brain demonstrates no acute intracranial abnormality. There are multiple areas of old strokes. ASSESSMENT: 1. Acute hypoxic respiratory failure, resolved. 2. Metabolic encephalopathy, suspected. 3. Cerebrovascular accident, remote. 4. Hypertension. 5. Urinary tract infection. PLAN: The patient has demonstrated hemodynamic stability. I will replace her potassium. The patient will remain in the hospital, but can transition to the telemetry unit. As the patient has no further requirements for inpatient pulmonary critical care opinion and I will sign off. Please call with additional questions or concerns. AIME
[2017-10-31] MEDS: Cefepime 1 GM, Admixture Fee 1 EACH in Sterile Water 10 ML SLOW IVP SCH ×2 (02:47→14:42)
[2017-10-31] MEDS: Vancomycin HCl 1.25 GM in Sodium Chloride 0.9% 250 ML 250 ML IVPB SCH ×2 (05:27→16:23)
[2017-10-31 05:50] LABS: #Basophils 0.1 thou/uL (0.0-0.2); #Eosinphils 0.3 thou/uL (0.0-0.7); #Lymphocytes 1.9 thou/uL (1.20-3.40); #Monocytes 0.9 thou/uL (0.11-0.59); #Neutrophils 5.7 thou/uL (1.40-6.50); %Basophils 0.6 % (0.0-1.0); %Eosinophils 3.8 % (0.0-10.0); %Lymphocytes 21.7 % (21.0-51.0); %Monocytes 10.2 % (0.0-10.0); %Neutrophils 63.7 % (42.0-75.0); Hemoglobin 9.1 g/dL (12.0-16.0); Mean Corpuscular HGB CONC 31.7 g/dL (32.0-36.0); Mean Corpuscular Hemoglobin 30.5 pg (27.0-31.0); Mean Corpuscular Volume 96.1 fl (81.0-99.0); Platelet Count 366 thou/uL (130-400); RBC Distribution Width 14.7 % (11.5-14.5); Red Blood Cell (RBC) Count 2.97 mill/uL (4.20-5.40); White Blood Cell (WBC) Count 8.9 thou/uL (4.8-10.8)
[2017-10-31 06:04] LABS: Anion Gap 10 mmol/L (10-20); BUN (Urea Nitrogen) 6 mg/dL (9.8-20.1); Calc. Creatinine Clearance 103 mL/min (70-130); Calcium 9.1 mg/dL (7.8-10.44); Carbon Dioxide 25 mmol/L (23-31); Chloride 112 mmol/L (98-107); Estimated GFR-MDRD Greater than 90; Glucose 96 mg/dL (83-110); Potassium 3.6 mmol/L (3.5-5.1); Sodium 143 mmol/L (136-145)
--- NOTE | 2017-10-31 08:57 | PDOC.PN ---
- Subjective Encounter Start Date: 10/31/17 Encounter Start Time: 08:55 Subjective: alert, minimally cooperative - Objective MAR Reviewed: Yes Vital Signs & Weight: Vital Signs (12 hours) Temp Pulse Resp BP Pulse Ox 10/31/17 08:28 169/70 H 10/31/17 08:00 98.6 F 84 16 192/62 H 98 10/31/17 07:58 98.6 F 84 16 192/62 H 98 10/31/17 03:37 98.1 F 92 16 157/71 H 95 10/30/17 23:37 98.5 F 91 16 156/69 H 95 Weight Admit Weight 117 lb 15.152 oz Weight 199 lb 1.6 oz Most Recent Monitor Data Heart Rate from ECG 100 NIBP 155/63 NIBP BP-Mean 108 Respiration from ECG 18 SpO2 99 I&O: 10/30/17 10/31/17 11/01/17 06:59 06:59 06:59 Intake Total 1867.1 550 Output Total 2127 1995 Balance -259.9 -1445 Result Diagrams: 10/31/17 05:25 10/31/17 05:25 Phys Exam - Physical Examination Neck: no JVD Respiratory: clear to auscultation bilateral Cardiovascular: RRR, no significant murmur Gastrointestinal: soft, positive bowel sounds Musculoskeletal: no edema Dx/Plan (1) Acute respiratory failure with hypoxia Code(s): J96.01 - ACUTE RESPIRATORY FAILURE WITH HYPOXIA Status: Resolved (2) Encephalopathy Code(s): G93.40 - ENCEPHALOPATHY, UNSPECIFIED Status: Acute (3) HTN (hypertension) Code(s): I10 - ESSENTIAL (PRIMARY) HYPERTENSION Status: Chronic Qualifiers: Hypertension type: essential hypertension Qualified Code(s): I10 - Essential (primary) hypertension (4) Troponin level elevated Code(s): R74.8 - ABNORMAL LEVELS OF OTHER SERUM ENZYMES Status: Acute (5) Tobacco abuse Code(s): Z72.0 - TOBACCO USE Status: Acute (6) UTI (urinary tract infection) Status: Acute Qualifiers: Urinary tract infection type: site unspecified Hematuria presence: without hematuria Qualified Code(s): N39.0 - Urinary tract infection, site not specified - Plan cont cefepime for uti -: awaiting speech tx rec. -: cont parenteral BP control- target 180 or less systolic * .
[2017-10-31] MEDS: Labetalol HCl 100 MG/20 ML VIAL SLOW IVP PRN (20:53)
[2017-10-31] MEDS: Acetaminophen 500 MG TAB PO PRN (23:35)
[2017-11-01] MEDS: Cefepime 1 GM, Admixture Fee 1 EACH in Sterile Water 10 ML SLOW IVP SCH ×2 (04:13→15:20)
[2017-11-01] MEDS: Vancomycin HCl 1.25 GM in Sodium Chloride 0.9% 250 ML 250 ML IVPB SCH (04:14)
[2017-11-01 04:52] LABS: #Basophils 0.1 thou/uL (0.0-0.2); #Eosinphils 0.4 thou/uL (0.0-0.7); #Lymphocytes 2.1 thou/uL (1.20-3.40); #Monocytes 0.8 thou/uL (0.11-0.59); #Neutrophils 3.6 thou/uL (1.40-6.50); %Basophils 1.1 % (0.0-1.0); %Eosinophils 5.9 % (0.0-10.0); %Lymphocytes 30.3 % (21.0-51.0); %Monocytes 11.6 % (0.0-10.0); Hemoglobin 8.2 g/dL (12.0-16.0); Mean Corpuscular HGB CONC 31.5 g/dL (32.0-36.0); Mean Corpuscular Hemoglobin 30.2 pg (27.0-31.0); Mean Corpuscular Volume 95.9 fl (81.0-99.0); Mean Platelet Volume 6.1 fL (7.4-10.4); Platelet Count 346 thou/uL (130-400); RBC Distribution Width 14.6 % (11.5-14.5)
[2017-11-01 05:21] LABS: Anion Gap 10 mmol/L (10-20); BUN (Urea Nitrogen) 5 mg/dL (9.8-20.1); Calc. Creatinine Clearance 95 mL/min (70-130); Carbon Dioxide 23 mmol/L (23-31); Chloride 107 mmol/L (98-107); Estimated GFR-MDRD Greater than 90; Glucose 81 mg/dL (83-110); Potassium 3.3 mmol/L (3.5-5.1); Sodium 137 mmol/L (136-145)
[2017-11-01] MEDS ORDERED: Vancomycin HCl 1.25 GM in Sodium Chloride 0.9% 250 ML 250 ML IVPB SCH (06:15)
[2017-11-01] MEDS: Labetalol HCl 100 MG/20 ML VIAL SLOW IVP PRN (12:12)
--- NOTE | 2017-11-01 13:50 | PDOC.PN ---
- Subjective Encounter Start Date: 11/01/17 Encounter Start Time: 13:48 Ms. Vincent is awake and alert. she does not appear to be in any distress. She dnies any trouble breathing, and denies pain of any sort. - Objective MAR Reviewed: Yes Vital Signs & Weight: Vital Signs (12 hours) Temp Pulse Pulse Pulse Resp BP BP 11/01/17 12:12 82 192/76 H 11/01/17 11:10 98.8 F 82 18 11/01/17 10:45 86 85 177/71 H 11/01/17 08:00 98 F 78 16 11/01/17 04:00 98.2 F 79 18 BP BP Pulse Ox 11/01/17 12:12 11/01/17 11:10 192/76 H 99 11/01/17 10:45 178/70 H 11/01/17 08:00 162/70 H 98 11/01/17 04:00 164/69 H 97 Weight Admit Weight 117 lb 15.152 oz Weight 200 lb 1 oz Most Recent Monitor Data Heart Rate from ECG 100 NIBP 155/63 NIBP BP-Mean 108 Respiration from ECG 18 SpO2 99 I&O: 10/31/17 11/01/17 11/02/17 06:59 06:59 06:59 Intake Total 550 500 Output Total 1994 Balance -1445 500 Result Diagrams: 11/01/17 04:06 11/01/17 04:06 Phys Exam - Physical Examination HEENT: PERRLA Respiratory: no wheezing, no rales, no rhonchi, clear to auscultation bilateral Cardiovascular: RRR, no significant murmur Gastrointestinal: soft, non-tender, positive bowel sounds Musculoskeletal: edema present Dx/Plan (1) Encephalopathy Code(s): G93.40 - ENCEPHALOPATHY, UNSPECIFIED Status: Acute (2) UTI (urinary tract infection) Status: Acute Qualifiers: Urinary tract infection type: site unspecified Hematuria presence: without hematuria Qualified Code(s): N39.0 - Urinary tract infection, site not specified (3) HTN (hypertension) Code(s): I10 - ESSENTIAL (PRIMARY) HYPERTENSION Status: Chronic Qualifiers: Hypertension type: essential hypertension Qualified Code(s): I10 - Essential (primary) hypertension (4) Acute respiratory failure with hypoxia Code(s): J96.01 - ACUTE RESPIRATORY FAILURE WITH HYPOXIA Status: Resolved - Plan * Metabolic Encephalopathy- ? etiology- possibly due to medications. I suspect she is at her baseline level of functioning * Acute respiratory failure- resolved * HTN- blood pressure is still elevated- however she is off all her home medications- will re-start these and re-evaluate * UTI- continue Cefepime for 4 more days. She is on day 3 of therapy * She has been cleared for a mechanical soft diet with thin liquids * Can consider discharge soon...
[2017-11-01] MEDS: cloNIDine 0.1 MG TAB PO SCH ×3 (15:19→20:37)
[2017-11-01] MEDS ORDERED: cloNIDine 0.1 MG TAB PO SCH (15:30)
[2017-11-01] MEDS: Carvedilol 6.25 MG TAB PO SCH (20:36)
[2017-11-02] MEDS: Cefepime 1 GM, Admixture Fee 1 EACH in Sterile Water 10 ML SLOW IVP SCH ×2 (03:53→15:08)
[2017-11-02 05:44] LABS: #Eosinphils 0.3 thou/uL (0.0-0.7); #Lymphocytes 1.8 thou/uL (1.20-3.40); #Monocytes 0.8 thou/uL (0.11-0.59); #Neutrophils 4.5 thou/uL (1.40-6.50); %Basophils 0.6 % (0.0-1.0); %Eosinophils 3.9 % (0.0-10.0); %Lymphocytes 24.5 % (21.0-51.0); %Monocytes 10.1 % (0.0-10.0); %Neutrophils 60.9 % (42.0-75.0); Hemoglobin 7.8 g/dL (12.0-16.0); Mean Corpuscular Hemoglobin 30.5 pg (27.0-31.0); Mean Corpuscular Volume 95.2 fl (81.0-99.0); Mean Platelet Volume 6.2 fL (7.4-10.4); Platelet Count 316 thou/uL (130-400); RBC Distribution Width 14.5 % (11.5-14.5); Red Blood Cell (RBC) Count 2.55 mill/uL (4.20-5.40); White Blood Cell (WBC) Count 7.5 thou/uL (4.8-10.8)
[2017-11-02 06:08] LABS: Anion Gap 11 mmol/L (10-20); BUN (Urea Nitrogen) 9 mg/dL (9.8-20.1); Calc. Creatinine Clearance 60 mL/min (70-130); Calcium 8.8 mg/dL (7.8-10.44); Carbon Dioxide 22 mmol/L (23-31); Chloride 106 mmol/L (98-107); Estimated GFR-MDRD 55; Glucose 88 mg/dL (83-110); Potassium 3.9 mmol/L (3.5-5.1); Sodium 135 mmol/L (136-145)
[2017-11-02] MEDS ORDERED: Folic Acid 1 MG TAB PO SCH (09:00)
[2017-11-02] MEDS ORDERED: Amlodipine 10 MG TAB PO SCH (09:00)
[2017-11-02] MEDS ORDERED: Losartan 25 MG TAB PO SCH (09:00)
[2017-11-02] MEDS ORDERED: Clopidogrel Bisulfate 75 MG TAB PO SCH (09:00)
[2017-11-02] MEDS: cloNIDine 0.1 MG TAB PO SCH (09:45)
[2017-11-02] MEDS: Carvedilol 6.25 MG TAB PO SCH (09:45)
--- NOTE | 2017-11-02 11:20 | PDOC.PN ---
- Subjective Encounter Start Date: 11/02/17 Encounter Start Time: 11:19 Ms. Vincent was seen today in follow-up. she is resting in bed, and does not have any complaints this morning. - Objective MAR Reviewed: Yes Vital Signs & Weight: Vital Signs (12 hours) Temp Pulse Resp BP Pulse Ox 11/02/17 07:36 98.2 F 67 16 11/02/17 07:20 99.5 F 76 18 126/60 99 11/02/17 04:00 98.2 F 67 16 131/53 L 97 11/02/17 01:10 99 Weight Admit Weight 117 lb 15.152 oz Weight 193 lb 4 oz Most Recent Monitor Data Heart Rate from ECG 100 NIBP 155/63 NIBP BP-Mean 108 Respiration from ECG 18 SpO2 99 I&O: 11/01/17 11/02/17 11/03/17 06:59 06:59 06:59 Intake Total 500 240 Balance 500 240 Result Diagrams: 11/02/17 05:12 11/02/17 05:12 Phys Exam - Physical Examination HEENT: PERRLA Respiratory: no wheezing, no rales, no rhonchi, clear to auscultation bilateral Cardiovascular: RRR, no significant murmur Gastrointestinal: soft, non-tender, positive bowel sounds Musculoskeletal: no edema Dx/Plan (1) Encephalopathy Code(s): G93.40 - ENCEPHALOPATHY, UNSPECIFIED Status: Acute (2) UTI (urinary tract infection) Status: Acute Qualifiers: Urinary tract infection type: site unspecified Hematuria presence: without hematuria Qualified Code(s): N39.0 - Urinary tract infection, site not specified (3) HTN (hypertension) Code(s): I10 - ESSENTIAL (PRIMARY) HYPERTENSION Status: Chronic Qualifiers: Hypertension type: essential hypertension Qualified Code(s): I10 - Essential (primary) hypertension (4) Acute respiratory failure with hypoxia Code(s): J96.01 - ACUTE RESPIRATORY FAILURE WITH HYPOXIA Status: Resolved - Plan * Metabolic encephalopathy- resolved * UTI- will continue Cefepime for 3 more days * HTN- blood pressure is stable * She can be [facility].
[2017-11-02 11:24] VITALS: BMI 32.7
[2017-11-02 12:00] VITALS: BP 99/51; TEMP 98.7
[2017-11-02] MEDS: Acetaminophen 500 MG TAB PO PRN (12:46)
[2017-11-02] MEDS ORDERED: Sodium Chloride 0.9% 500 ML IV SCH (15:45)
--- NOTE | 2017-11-02 20:53 | DIS ---
PRIMARY CARE PHYSICIAN: Dr. Ramirez. DATE OF ADMISSION: 10/28/2017 DATE OF DISCHARGE: 11/02/2017 DISCHARGE DISPOSITION: To the [facility] facility. DISCHARGE DIAGNOSES: 1. Metabolic encephalopathy, possibly secondary to pain medication. 2. Urinary tract infection. 3. Hypertension. 4. Cerebrovascular accident. DISCHARGE MEDICATIONS: Include sertraline 50 mg one-half tablet daily, Cozaar 100 mg daily, folic ac id 1 mg daily, Plavix 75 mg daily, clonidine 0.1 mg twice a day, Maxipime 1 gram twice a day for 3 ad ditional days, carvedilol 6.25 mg twice daily, aspirin 81 mg daily, amlodipine 10 mg daily, Tylenol N o.3 q.6 hours as needed. PROCEDURES DONE DURING ADMISSION: The patient had a CT scan of the brain showing some focal area rei nts, encephalomalacia in the posterior parietal lobe suggesting an old infarct, and there were some c hronic ischemic changes and a focal lucency in the brainstem, which could be an old brainstem infarct . The patient had an MRI of the brain in which there was an old left central semiovale areas of old strokes in the left occipital and parietal lobes, and the area of infarct in the lacunar area appeare d to be old. The patient had a CT scan of the abdomen and pelvis in which the colon was abnormal, th ere was some mural thickening involving the right colon. Colonoscopy was recommended for further wor kup. The patient also had an echocardiogram and the ejection fraction was estimated at 60%-65%. The re was some suggestion of diastolic dysfunction. There was [id number] aortic stenosis with v alve area of 0.9-1.1 cm2. CODE STATUS: FULL CODE. ALLERGIES: No known drug allergies. HOSPITAL COURSE: Ms. Vincent is a 77-year-old female who was brought to the hospital due to slurred speech and some concerned that she was having some difficulty breathing. In the emergency room, she became apneic and ended up intubated and admitted to the ICU. It is unclear what caused the respirat ory distress. She was able to be extubated relatively rapidly and it is thought that it is possible that the encephalopathy as well as respiratory distress could have been related to the pain medicatio n she is taking, which was the hydrocodone. She was also found to have a urinary tract infection, wh ich grew Enterobacter and was sensitive to cefepime. There was no oral antibiotic, in which it was s ensitive and so for this reason, she will finish up her course of IV cefepime in the [facility] facility. By the time of discharge, she was back to her baseline status; however, she did have some significant underlying dementia and on 11/02/2017, she was discharged to the [facility] unit.
== END 2017-11-02 17:10 | DRG 208 ==
LOC: ERS 15:50 → CCU 22:38 → 2SE 10-30 09:30
PROVIDERS: ADMIT Internal Medicine; ATTEND Internal Medicine
PROC: 5A1935Z Respiratory Ventilation, Less than 24 Consecutive Hours (ICD-10-PCS; principal; 2017-10-28)
PROC: 0BH17EZ Insertion of Endotracheal Airway into Trachea, Via Natural or Artificial Opening (ICD-10-PCS; 2017-10-28)
DX: J96.01 Acute respiratory failure with hypoxia (principal); G92 Toxic encephalopathy; N39.0 Urinary tract infection, site not specified; I10 Essential (primary) hypertension; F17.210 Nicotine dependence, cigarettes, uncomplicated; R74.8 Abnormal levels of other serum enzymes; B96.89 Other specified bacterial agents as the cause of diseases classified elsewhere; T40.2X5A Adverse effect of other opioids, initial encounter; Z86.73 Personal history of transient ischemic attack (TIA), and cerebral infarction without residual deficits; Z89.512 Acquired absence of left leg below knee; Z79.899 Other long term (current) drug therapy
CPT/HCPCS: 31500; 36415; 36416; 51702; 70450; 70551; 71045; 74018; 74177; 80048; 80053; 80061; 80202; 80306; 80307; 81003; 81015; 82140; 82553; 82805; 83605; 83690; 83735; 83880; 84443; 84484; 85025; 85610; 85730; 86850; 86900; 86901; 87040; 87077; 87086; 87149; 87186; 93005; 93306; 94002; 94003; 94760; 95816; 95819; 96361; 96365; 96366; 96368; 96375; 99292; A4216; G8978-GP-CN; G8979-GP-CL; G8987-GO-CM; G8988-GO-CK; G8996-GN-CN; G8997-GN-CL; J0360; J0692; J2250; J2270; J2310; J2543; J2704; J3370; J3480; J7050

== ENCOUNTER 2017-12-04 11:52 | Emergency (ER) | payer MEDICARE, MEDICAID ==
[2017-12-04 12:27] LABS: #Basophils 0.1 thou/uL (0.0-0.2); #Eosinphils 0.1 thou/uL (0.0-0.7); #Lymphocytes 1.7 thou/uL (1.20-3.40); #Monocytes 0.7 thou/uL (0.11-0.59); #Neutrophils 5.5 thou/uL (1.40-6.50); %Basophils 0.7 % (0.0-1.0); %Eosinophils 1.4 % (0.0-10.0); %Lymphocytes 21.5 % (21.0-51.0); %Monocytes 8.3 % (0.0-10.0); %Neutrophils 68.2 % (42.0-75.0); Hemoglobin 7.4 g/dL (12.0-16.0); Mean Corpuscular HGB CONC 30.6 g/dL (32.0-36.0); Mean Corpuscular Hemoglobin 29.6 pg (27.0-31.0); Mean Corpuscular Volume 96.8 fl (81.0-99.0); Platelet Count 568 thou/uL (130-400); RBC Distribution Width 16.2 % (11.5-14.5); White Blood Cell (WBC) Count 8.1 thou/uL (4.8-10.8)
[2017-12-04 12:48] LABS: ALT (SGPT) Less than 7 U/L (8-55); AST (SGOT) 7 U/L (5-34); Albumin 2.2 g/dL (3.4-4.8); Alkaline Phosphatase 74 U/L (40-150); Anion Gap 12 mmol/L (10-20); BUN (Urea Nitrogen) 26 mg/dL (9.8-20.1); Bilirubin, Total 0.3 mg/dL (0.2-1.2); Calc. Creatinine Clearance 0 mL/min (70-130); Calcium 8.3 mg/dL (7.8-10.44); Carbon Dioxide 20 mmol/L (23-31); Chloride 107 mmol/L (98-107); Estimated GFR-MDRD 62; Globulin 4.2 g/dL (2.4-3.5); Glucose 122 mg/dL (83-110); Potassium 4.6 mmol/L (3.5-5.1); Protein, Total 6.4 g/dL (6.0-8.3); Sodium 134 mmol/L (136-145)
[2017-12-04 14:00] LABS: CKMB 0.9 ng/mL (0-6.6); Troponin I 0.025 ng/mL (< 0.028)
--- NOTE | 2017-12-04 14:13 | RAD ---
FRONTAL VIEW CHEST: Comparison: 10-28-17 Clinical history: Weakness. FINDINGS: No consolidation, effusion, or pneumothorax. Cardiac silhouette is stable, accentuated with portable technique. Interval removal of prior supportive tubes. Chest is otherwise similar. IMPRESSION: 1. Interval extubation. 2. No focal consolidation. POS: [facility]
[2017-12-04 14:25] LABS: Bilirubin Small (Negative); Blood, Urine Negative (Negative); Clarity CLEAR (Clear); Glucose, Urine (Dipstick) Negative (Negative); Leukocyte Trace (Negative); Nitrite Negative (Negative); Protein, Urine (Dipstick) Trace mg/dL (Neg-Trace); Specific Gravity, Urine 1.013 (1.002-1.036); Urobilinogen 0.2 mg/dL (0.2-1.0)
[2017-12-04 14:32] LABS: RBC/HPF None Seen HPF (0-3); Squamous Epithelial 0-3 HPF (0-3); WBC/HPF 0-3 HPF (0-3)
[2017-12-04 14:33] LABS: Bacteria/HPF Rare-Few HPF (None Seen); Hyaline Casts/LPF NONE SEEN LPF (0-3 Hyaline)
[2017-12-04] MEDS ORDERED: Acetaminophen 500 MG TAB ONE ×2 (15:10→20:55)
--- NOTE | 2017-12-08 21:35 | EKG ---
Test Reason : Blood Pressure : / mmHG Vent. Rate : 060 BPM Atrial Rate : 060 BPM P-R Int : 158 ms QRS Dur : 112 ms QT Int : 442 ms P-R-T Axes : 054 -27 087 degrees QTc Int : 442 ms Normal sinus rhythm Normal ECG Confirmed by JERICHO CARUSO M.D. ([id number]), assignment desk editor SAMMI NOGUEIRA ([id number]) on 12/08/2017 9:34:46 PM Referred By: Confirmed By:JERICHO CARUSO M.D.
== END 2017-12-04 21:05 | disposition home or self-care (01) ==
LOC: ERS 11:52
DX: R53.1 Weakness (principal); Z89.512 Acquired absence of left leg below knee; F17.210 Nicotine dependence, cigarettes, uncomplicated; I10 Essential (primary) hypertension; I73.9 Peripheral vascular disease, unspecified; Z79.899 Other long term (current) drug therapy; Z71.6 Tobacco abuse counseling
CPT/HCPCS: 36415; 51701; 71045; 80053; 81003; 81015; 82553; 84484; 85025; 86850; 86900; 86901; 87040; 93005; 99406; A4353

== ENCOUNTER 2018-10-01 21:24 | Emergency (ER) | payer MEDICARE, MEDICAID | END 2018-10-01 21:34 | disposition E | LOC: ERS 21:24 | DX: I46.9 Cardiac arrest, cause unspecified (principal); I10 Essential (primary) hypertension; D64.9 Anemia, unspecified; Z86.73 Personal history of transient ischemic attack (TIA), and cerebral infarction without residual deficits; Z79.82 Long term (current) use of aspirin; Z79.891 Long term (current) use of opiate analgesic; Z79.899 Other long term (current) drug therapy; Z79.1 Long term (current) use of non-steroidal anti-inflammatories (NSAID) | CPT/HCPCS: 92950; 96374 ==